=== PATIENT | female | born 1990 | race Caucasian/White ===

== ENCOUNTER 2016-07-15 12:12 | Emergency (ER) | payer OTHER ==
[2016-07-15] MEDS ORDERED: ACETAMINOPHEN TAB 500 MG TAB PO STA (12:25)
[2016-07-15] MEDS ORDERED: PHENAZOPYRIDINE 100 MG TAB PO STA (12:25)
[2016-07-15] MEDS ORDERED: SODIUM CHLORIDE 0.9% 1,000 ML IV STA (12:25)
--- NOTE | 2016-07-15 12:27 | ED ---
Female Urogenital HPI - General Chief complaint: Urogenital Stated complaint: BODY ACHES, UTI, FEVER Time Seen by Provider: 07/15/16 12:19 Source: patient, RN notes reviewed Mode of arrival: ambulatory Limitations: no limitations - History of Present Illness Initial comments: 25-year-old female presents to the emergency department with a chief complaint of dysuria. Patient states she's had dysuria for the past 2-3 days. Today she woke up and she had full body aches and a fever and she just feels terrible. Patient states that she was concerned. Patient states dysuria seemed to improve yesterday she is not other related or not. Patient denies any nausea vomiting any chest pain or shortness of breath. She denies any significant health history.Patient denies any recent shortness of breath, chest pain, back pain, abdominal pain, nausea vomiting, numbness or tingling,hematuria, constipation or diarrhea, headaches or visual changes, or any other current symptoms. - Related Data Home Medications Medication Instructions Recorded Confirmed Ibuprofen [Motrin] 200 - 400 mg PO Q6HR PRN 07/15/16 07/15/16 Previous Rx's Medication Instructions Recorded Ciprofloxacin HCl [Cipro] 500 mg PO Q12HR #14 tablet 07/15/16 Ondansetron Odt [Zofran ODT] 4 mg PO Q8HR PRN #20 tab 07/15/16 Phenazopyridine [Pyridium] 100 mg PO TID #6 tablet 07/15/16 Allergies Allergy/AdvReac Type Severity Reaction Status Date / Time No Known Allergies Allergy Verified 07/15/16 12:29 Review of Systems ROS Statement: Those systems with pertinent positive or pertinent negative responses have been documented in the HPI. ROS Other: All systems not noted in ROS Statement are negative. Past Medical History Past Medical History: No Reported History Additional Past Medical History / Comment(s): gallstones History of Any Multi-Drug Resistant Organisms: None Reported Past Surgical History: Cardiac Ablation Additional Past Surgical History / Comment(s): left foot, LICENSING OFFICER exploratory surgery Past Anesthesia/Blood Transfusion Reactions: No Reported Reaction Past Psychological History: Anxiety Smoking Status: Current every day smoker Past Alcohol Use History: Occasional Past Drug Use History: None Reported - Past Family History Mother Family Medical History: Cancer Additional Family Medical History / Comment(s): ovarian General Exam - General Exam Comments Initial Comments: General: The patient is awake and alert, in no distress, and does not appear acutely ill. Eye: Pupils are equal, round and reactive to light, extra-ocular movements are intact; there is normal conjunctiva bilaterally. No signs of icterus. Ears, nose, mouth and throat: There are moist mucous membranes and no oral lesions. Neck: The neck is supple, there is no tenderness. Cardiovascular: There is a regular rate and rhythm. No murmur, rub or gallop is appreciated. Respiratory: Lungs are clear to auscultation, respirations are non-labored, breath sounds are equal. No wheezes, stridor, rales, or rhonchi. Gastrointestinal: Soft, non-distended, non-tender abdomen without masses or organomegaly noted. There is no rebound or guarding present. No CVA tenderness. Bowel sounds are unremarkable. Back: There is no tenderness to palpation in the midline. There is no obvious deformity. No rashes noted. Musculoskeletal: Normal ROM, no tenderness, There is no pedal edema. There is no calf tenderness or swelling. Sensation intact. Pulses equal bilaterally 2+. Neurological: CN II-XII intact, There are no obvious motor or sensory deficits. Coordination appears grossly intact. Speech is normal. Skin: Skin is warm and dry and no rashes or lesions are noted. Psychiatric: Cooperative, appropriate mood & affect, normal judgment. Limitations: no limitations Course Vital Signs 07/15/16 12:14 Temperature 102.2 F H Pulse Rate 65 Respiratory 16 Rate Blood Pressure 138/96 O2 Sat by Pulse 97 Oximetry Medical Decision Making - Medical Decision Making 25-year-old female presents to the emergency Department chief complaint fever and dysuria. At this time the patient does appear to have a pyelonephritis. This time patient did receive 2 g of Rocephin. Patient's fever has broke she has no white blood cell count. At this time we did discuss that we could admit the patient for IV antibiotics. Patient states she does not want that she like to go home. This and would trial of outpatient antibiotics. We discussed the importance of returning we did discuss return parameters and follow-up. We discussed the patient's questions. She stated that she understood well the patient's wishes and discharge her home with the appropriate medications. We discussed return parameters. All her questions have been answered. She will be discharged. - Lab Data Result diagrams: 07/15/16 12:10 07/15/16 12:10 Lab Results 07/15/16 07/15/16 07/15/16 Range/Units 12:10 12:10 12:10 WBC 10.0 (3.8-10.6) k/uL RBC 4.35 (3.80-5.40) m/uL Hgb 13.0 (11.4-16.0) gm/dL Hct 40.3 (34.0-46.0) % MCV 92.7 (80.0-100.0) fL MCH 29.9 (25.0-35.0) pg MCHC 32.2 (31.0-37.0) g/dL RDW 12.7 (11.5-15.5) % Plt Count 208 (150-450) k/uL Neutrophils % 80 % Lymphocytes % 13 % Monocytes % 5 % Eosinophils % 1 % Basophils % 0 % Neutrophils # 8.0 H (1.3-7.7) k/uL Lymphocytes # 1.3 (1.0-4.8) k/uL Monocytes # 0.5 (0-1.0) k/uL Eosinophils # 0.1 (0-0.7) k/uL Basophils # 0.0 (0-0.2) k/uL Sodium 141 (137-145) mmol/L Potassium 3.9 (3.5-5.1) mmol/L Chloride 105 (98-107) mmol/L Carbon Dioxide 23 (22-30) mmol/L Anion Gap 13 mmol/L BUN 8 (7-17) mg/dL Creatinine 0.88 (0.52-1.04) mg/dL Est GFR (MDRD) Af Amer >60 (>60 ml/min/1.73 sqM) Est GFR (MDRD) Non-Af >60 (>60 ml/min/1.73 sqM) Glucose 83 (74-99) mg/dL Plasma Lactic Acid Christopher (0.7-2.0) mmol/L Calcium 9.3 (8.4-10.2) mg/dL Total Bilirubin 1.1 (0.2-1.3) mg/dL AST 19 (14-36) U/L ALT 32 (9-52) U/L Alkaline Phosphatase 73 (38-126) U/L Total Protein 7.3 (6.3-8.2) g/dL Albumin 4.1 (3.5-5.0) g/dL Urine Color Urine Appearance (Clear) Urine pH (5.0-8.0) Ur Specific [place] (1.001-1.035) Urine Protein (Negative) Urine Glucose (UA) (Negative) Urine Ketones (Negative) Urine Blood (Negative) Urine Nitrate (Negative) Urine Bilirubin (Negative) Urine Urobilinogen (<2.0) mg/dL Ur Leukocyte Esterase (Negative) Urine RBC (0-5) /hpf Urine WBC (0-5) /hpf Ur Squamous Epith Cells (0-4) /hpf Urine Bacteria (None) /hpf Urine Mucus (None) /hpf Influenza Type A RNA Not Detected (Not Detectd) Influenza Type B (PCR) Not Detected (Not Detectd) 07/15/16 07/15/16 Range/Units 12:10 12:10 WBC (3.8-10.6) k/uL RBC (3.80-5.40) m/uL Hgb (11.4-16.0) gm/dL Hct (34.0-46.0) % MCV (80.0-100.0) fL MCH (25.0-35.0) pg MCHC (31.0-37.0) g/dL RDW (11.5-15.5) % Plt Count (150-450) k/uL Neutrophils % % Lymphocytes % % Monocytes % % Eosinophils % % Basophils % % Neutrophils # (1.3-7.7) k/uL Lymphocytes # (1.0-4.8) k/uL Monocytes # (0-1.0) k/uL Eosinophils # (0-0.7) k/uL Basophils # (0-0.2) k/uL Sodium (137-145) mmol/L Potassium (3.5-5.1) mmol/L Chloride (98-107) mmol/L Carbon Dioxide (22-30) mmol/L Anion Gap mmol/L BUN (7-17) mg/dL Creatinine (0.52-1.04) mg/dL Est GFR (MDRD) Af Amer (>60 ml/min/1.73 sqM) Est GFR (MDRD) Non-Af (>60 ml/min/1.73 sqM) Glucose (74-99) mg/dL Plasma Lactic Acid Christopher 1.5 (0.7-2.0) mmol/L Calcium (8.4-10.2) mg/dL Total Bilirubin (0.2-1.3) mg/dL AST (14-36) U/L ALT (9-52) U/L Alkaline Phosphatase (38-126) U/L Total Protein (6.3-8.2) g/dL Albumin (3.5-5.0) g/dL Urine Color Yellow Urine Appearance Turbid H (Clear) Urine pH 6.5 (5.0-8.0) Ur Specific [place] 1.012 (1.001-1.035) Urine Protein 1+ H (Negative) Urine Glucose (UA) Negative (Negative) Urine Ketones Negative (Negative) Urine Blood Small H (Negative) Urine Nitrate Positive H (Negative) Urine Bilirubin Negative (Negative) Urine Urobilinogen 2.0 (<2.0) mg/dL Ur Leukocyte Esterase Large H (Negative) Urine RBC 34 H (0-5) /hpf Urine WBC >182 H (0-5) /hpf Ur Squamous Epith Cells 20 H (0-4) /hpf Urine Bacteria Rare H (None) /hpf Urine Mucus Rare H (None) /hpf Influenza Type A RNA (Not Detectd) Influenza Type B (PCR) (Not Detectd) Disposition Clinical Impression: Acute pyelonephritis Disposition: HOME SELF-CARE Condition: Stable Instructions: Kidney Infection (ED) Additional Instructions: Please use medication as discussed. Please follow up with family doctor if symptoms have not improved over the next two days. Please return to the emergency room if your symptoms increase or worsen or for any other concerns. Prescriptions: Ciprofloxacin HCl [Cipro] 500 mg PO Q12HR #14 tablet Ondansetron Odt [Zofran ODT] 4 mg PO Q8HR PRN #20 tab PRN Reason: Nausea Phenazopyridine [Pyridium] 100 mg PO TID #6 tablet Referrals: None,Stated [Primary Care Provider] - 1-2 days Patricia Marion MD [STAFF PHYSICIAN] - 1-2 days Time of Disposition: 13:41
[2016-07-15 12:55] LABS: Basophils % (A) 0 %; CH 30.7; CHCM 33.3; Eosinophils # (A) 0.1 k/uL (0-0.7); Eosinophils % (A) 1 %; HCT 40.3 % (34.0-46.0); HDW 2.15; Luc % (Auto) 1; Lymphocytes # (A) 1.3 k/uL (1.0-4.8); Lymphocytes % (A) 13 %; MCH 29.9 pg (25.0-35.0); MCHC 32.2 g/dL (31.0-37.0); MCV 92.7 fL (80.0-100.0); Mean Platelet Volume 7.9; Monocytes # (A) 0.5 k/uL (0-1.0); Monocytes % (A) 5 %; Neutrophils % (A) 80 %; RBC 4.35 m/uL (3.80-5.40); RDW 12.7 % (11.5-15.5); WBC (Perox) 10.63
[2016-07-15 12:58] LABS: Appearance,Urine Turbid (Clear); Bacteria,Urine Rare /hpf; Bilirubin,Urine Negative (Negative); Glucose,Urine (UA) Negative (Negative); Ketones,Urine Negative (Negative); Leukocyte Esterase,Urine Large (Negative); Mucus,Urine Rare /hpf; Nitrite,Urine Positive (Negative); PH, Urine 6.5 (5.0-8.0); Particle Count 24682; Protein,Urine 1+ (Negative); RBC,Urine 34 /hpf (0-5); Specific Gravity,Urine 1.012 (1.001-1.035); Squamous Epithelial Cell,Urine 20 /hpf (0-4); UA Billing (MACRO vs. MICRO) MICRO; WBC,Urine >182 /hpf (0-5)
[2016-07-15 13:03] LABS: ALT 32 U/L (9-52); AST 19 U/L (14-36); Alkaline Phosphatase 73 U/L (38-126); Anion Gap 13 mmol/L; Blood Urea Nitrogen 8 mg/dL (7-17); Calcium 9.3 mg/dL (8.4-10.2); Carbon Dioxide 23 mmol/L (22-30); Chloride 105 mmol/L (98-107); Glucose 83 mg/dL (74-99); Non-African American GFR(MDRD) >60 (>60 ml/min/1.73 sqM); Potassium 3.9 mmol/L (3.5-5.1); Sodium 141 mmol/L (137-145); Total Bilirubin 1.1 mg/dL (0.2-1.3); Total Protein 7.3 g/dL (6.3-8.2)
[2016-07-15] MEDS ORDERED: METOCLOPRAMIDE 5 MG/ML 2 ML VIAL IVP STA (13:23)
[2016-07-15] MEDS ORDERED: CIPROFLOXACIN HCL 500 MG TAB PO STA (13:41)
[2016-07-15 14:31] VITALS: BP 93/50; PULSE 98; RESP 16; TEMP 99
== END 2016-07-15 14:29 | disposition home or self-care (01) ==
LOC: EC 12:12
DX: N10 Acute pyelonephritis (principal); F17.200 Nicotine dependence, unspecified, uncomplicated
CPT/HCPCS: 99283; 96365; 96368; 96375; 96361; 36415; 80053; 83605; 85025; 81001; 87040; 87086; 87502; J2765; J0696; 87077; 87186

== ENCOUNTER 2016-11-16 07:39 | Emergency (ER) | payer OTHER ==
[2016-11-16] MEDS ORDERED: SODIUM CHLORIDE 0.9% 1,000 ML IV STA (08:40)
[2016-11-16] MEDS ORDERED: ONDANSETRON 4 MG/2 ML VIAL IVP STA (08:40)
[2016-11-16] MEDS ORDERED: ACETAMINOPHEN IV (For NPO) 1,000 MG in SALINE 100 100ML.BAG IVPB STA (08:41)
--- NOTE | 2016-11-16 08:49 | ED ---
General Adult HPI - General Chief complaint: Abdominal Pain Stated complaint: Abd Pain Time Seen by Provider: 11/16/16 08:37 Source: patient, RN notes reviewed Mode of arrival: ambulatory Limitations: no limitations - History of Present Illness Initial comments: Patient 26-year-old female who presents emergency room today with chief complaint of upper abdominal pain that started approximately 3 hours ago. She does admit to pain greatest in the right upper quadrant radiating across and around into the back. She states that it is a sharp pain. Slightly better since being here in the emergency room. Does admit to a history of gallstones. States she follow-up with his surgeon approximately year ago but was having problems with her insurance at the time. Patient does admit to symptoms of nausea. She denies any other complaints or symptoms at this time. Patient denies any recent fever, chills, shortness of breath, chest pain, numbness or tingling, dysuria or hematuria, constipation or diarrhea, headaches or visual changes, or any other complaints. - Related Data Home Medications Medication Instructions Recorded Confirmed Ibuprofen [Motrin] 200 - 400 mg PO Q6HR PRN 07/15/16 07/15/16 Previous Rx's Medication Instructions Recorded Ciprofloxacin HCl [Cipro] 500 mg PO Q12HR #14 tablet 07/15/16 Ondansetron Odt [Zofran ODT] 4 mg PO Q8HR PRN #20 tab 07/15/16 Phenazopyridine [Pyridium] 100 mg PO TID #6 tablet 07/15/16 Ondansetron Odt [Zofran ODT] 4 mg PO Q8HR PRN #20 tab 11/16/16 Allergies Allergy/AdvReac Type Severity Reaction Status Date / Time No Known Allergies Allergy Verified 11/16/16 07:40 Review of Systems ROS Statement: Those systems with pertinent positive or pertinent negative responses have been documented in the HPI. ROS Other: All systems not noted in ROS Statement are negative. 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 Eye: Pupils are equal, round and reactive to light, extra-ocular movements are intact. No nystagmus. There is normal conjunctiva bilaterally. No signs of icterus. Ears, nose, mouth and throat: There are moist mucous membranes and no oral lesions. Neck: The neck is supple, there is no tenderness or JVD. Cardiovascular: There is a regular rate and rhythm. No murmur, rub or gallop is appreciated. Respiratory: Lungs are clear to auscultation, respirations are non-labored, breath sounds are equal. No wheezes, stridor, rales, or rhonchi. Gastrointestinal: Normal appearance abdomen. Normal bowel sounds. Soft on palpation. Patient does have mild tenderness in the epigastric with increased tenderness in the right upper quadrant. No rebound tenderness. No guarding. No CVA tenderness. Musculoskeletal: Normal ROM, no tenderness. Strength 5/5. Sensation intact. Pulses equal bilaterally 2+. Neurological: A&O x 3. CN II-XII intact, There are no obvious motor or sensory deficits. Coordination appears grossly intact. Speech is normal. Skin: Skin is warm and dry and no rashes or lesions are noted. Psychiatric: Cooperative, appropriate mood & affect, normal judgment. Limitations: no limitations Course Vital Signs 11/16/16 11/16/16 07:40 09:22 Temperature 97.4 F L Pulse Rate 98 77 Respiratory 17 18 Rate Blood Pressure 118/78 113/57 O2 Sat by Pulse 99 98 Oximetry Medical Decision Making - Medical Decision Making Patient reexamined at this time shows no signs of distress resting comfortably in stretcher. Abdomen soft nontender. Patient's labs been reviewed unremarkable. No elevated white count. No fever. Negative alk phos and bilirubin. Patient's ultrasound reviewed and does show evidence for lithiasis no evidence of cholecystitis. Patient has seen Dr. Culver in the past but due to insurance issues did not have the surgery performed. At this time patient is advised to follow-up with surgeon. Advised return to emergency room if any symptoms increase or worsen or for any other concerns. She states her stated and is in agreement. - Lab Data Result diagrams: 11/16/16 08:12 11/16/16 08:12 Lab Results 11/16/16 11/16/16 11/16/16 Range/Units 08:12 08:12 08:12 WBC 7.6 (3.8-10.6) k/uL RBC 4.92 (3.80-5.40) m/uL Hgb 15.0 (11.4-16.0) gm/dL Hct 46.3 H (34.0-46.0) % MCV 94.2 (80.0-100.0) fL MCH 30.4 (25.0-35.0) pg MCHC 32.3 (31.0-37.0) g/dL RDW 13.3 (11.5-15.5) % Plt Count 265 (150-450) k/uL Neutrophils % 59 % Lymphocytes % 32 % Monocytes % 5 % Eosinophils % 1 % Basophils % 0 % Neutrophils # 4.5 (1.3-7.7) k/uL Lymphocytes # 2.5 (1.0-4.8) k/uL Monocytes # 0.4 (0-1.0) k/uL Eosinophils # 0.1 (0-0.7) k/uL Basophils # 0.0 (0-0.2) k/uL Sodium 141 (137-145) mmol/L Potassium 4.2 (3.5-5.1) mmol/L Chloride 107 (98-107) mmol/L Carbon Dioxide 23 (22-30) mmol/L Anion Gap 11 mmol/L BUN 10 (7-17) mg/dL Creatinine 0.68 (0.52-1.04) mg/dL Est GFR (MDRD) Af Amer >60 (>60 ml/min/1.73 sqM) Est GFR (MDRD) Non-Af >60 (>60 ml/min/1.73 sqM) Glucose 104 H (74-99) mg/dL Calcium 9.5 (8.4-10.2) mg/dL Total Bilirubin 0.5 (0.2-1.3) mg/dL AST 18 (14-36) U/L ALT 22 (9-52) U/L Alkaline Phosphatase 67 (38-126) U/L Total Protein 7.6 (6.3-8.2) g/dL Albumin 4.5 (3.5-5.0) g/dL Amylase 44 (30-110) U/L Lipase 92 (23-300) U/L Urine Color Urine Appearance (Clear) Urine pH (5.0-8.0) Ur Specific [place] (1.001-1.035) Urine Protein (Negative) Urine Glucose (UA) (Negative) Urine Ketones (Negative) Urine Blood (Negative) Urine Nitrite (Negative) Urine Bilirubin (Negative) Urine Urobilinogen (<2.0) mg/dL Ur Leukocyte Esterase (Negative) Urine HCG, Qual Not Detected (Not Detectd) 11/16/16 Range/Units 08:12 WBC (3.8-10.6) k/uL RBC (3.80-5.40) m/uL Hgb (11.4-16.0) gm/dL Hct (34.0-46.0) % MCV (80.0-100.0) fL MCH (25.0-35.0) pg MCHC (31.0-37.0) g/dL RDW (11.5-15.5) % Plt Count (150-450) k/uL Neutrophils % % Lymphocytes % % Monocytes % % Eosinophils % % Basophils % % Neutrophils # (1.3-7.7) k/uL Lymphocytes # (1.0-4.8) k/uL Monocytes # (0-1.0) k/uL Eosinophils # (0-0.7) k/uL Basophils # (0-0.2) k/uL Sodium (137-145) mmol/L Potassium (3.5-5.1) mmol/L Chloride (98-107) mmol/L Carbon Dioxide (22-30) mmol/L Anion Gap mmol/L BUN (7-17) mg/dL Creatinine (0.52-1.04) mg/dL Est GFR (MDRD) Af Amer (>60 ml/min/1.73 sqM) Est GFR (MDRD) Non-Af (>60 ml/min/1.73 sqM) Glucose (74-99) mg/dL Calcium (8.4-10.2) mg/dL Total Bilirubin (0.2-1.3) mg/dL AST (14-36) U/L ALT (9-52) U/L Alkaline Phosphatase (38-126) U/L Total Protein (6.3-8.2) g/dL Albumin (3.5-5.0) g/dL Amylase (30-110) U/L Lipase (23-300) U/L Urine Color Light Yellow Urine Appearance Clear (Clear) Urine pH 6.5 (5.0-8.0) Ur Specific [place] 1.006 (1.001-1.035) Urine Protein Negative (Negative) Urine Glucose (UA) Negative (Negative) Urine Ketones Negative (Negative) Urine Blood Negative (Negative) Urine Nitrite Negative (Negative) Urine Bilirubin Negative (Negative) Urine Urobilinogen <2.0 (<2.0) mg/dL Ur Leukocyte Esterase Negative (Negative) Urine HCG, Qual (Not Detectd) Disposition Clinical Impression: Cholelithiasis Disposition: HOME SELF-CARE Condition: Good Instructions: Gallstones (ED) Additional Instructions: Please follow-up with surgeon as discussed. Please stay away from fatty, greasy food as discussed. Please usemedication as needed and return to emergency room if any symptoms increase or worsen or for any other concerns. Prescriptions: Ondansetron Odt [Zofran ODT] 4 mg PO Q8HR PRN #20 tab PRN Reason: Nausea Referrals: None,Stated [Primary Care Provider] - 1-2 days Jamie Thakur MD [STAFF PHYSICIAN] - 1-2 days Time of Disposition: 09:38
[2016-11-16 08:54] LABS: Appearance,Urine Clear (Clear); Bilirubin,Urine Negative (Negative); Glucose,Urine (UA) Negative (Negative); Ketones,Urine Negative (Negative); Leukocyte Esterase,Urine Negative (Negative); Nitrite,Urine Negative (Negative); PH, Urine 6.5 (5.0-8.0); Protein,Urine Negative (Negative); Specific Gravity,Urine 1.006 (1.001-1.035); UA Billing (MACRO vs. MICRO) CHEM; Urobilinogen,Urine <2.0 mg/dL (<2.0)
[2016-11-16 08:55] LABS: Basophils % (A) 0 %; CH 30.8; CHCM 32.9; Eosinophils # (A) 0.1 k/uL (0-0.7); Eosinophils % (A) 1 %; HCT 46.3 % (34.0-46.0); Luc # (Auto) 0.17; Luc % (Auto) 2; Lymphocytes # (A) 2.5 k/uL (1.0-4.8); Lymphocytes % (A) 32 %; MCH 30.4 pg (25.0-35.0); MCHC 32.3 g/dL (31.0-37.0); MCV 94.2 fL (80.0-100.0); Mean Platelet Volume 7.3; Monocytes # (A) 0.4 k/uL (0-1.0); Monocytes % (A) 5 %; Neutrophils # (A) 4.5 k/uL (1.3-7.7); Neutrophils % (A) 59 %; RBC 4.92 m/uL (3.80-5.40); RDW 13.3 % (11.5-15.5); WBC 7.6 k/uL (3.8-10.6); WBC (Perox) 7.37
[2016-11-16 09:05] LABS: ALT 22 U/L (9-52); AST 18 U/L (14-36); Alkaline Phosphatase 67 U/L (38-126); Amylase 44 U/L (30-110); Anion Gap 11 mmol/L; Blood Urea Nitrogen 10 mg/dL (7-17); Calcium 9.5 mg/dL (8.4-10.2); Carbon Dioxide 23 mmol/L (22-30); Chloride 107 mmol/L (98-107); Glucose 104 mg/dL (74-99); Non-African American GFR(MDRD) >60 (>60 ml/min/1.73 sqM); Potassium 4.2 mmol/L (3.5-5.1); Sodium 141 mmol/L (137-145); Total Bilirubin 0.5 mg/dL (0.2-1.3); Total Protein 7.6 g/dL (6.3-8.2)
[2016-11-16 09:23] VITALS: BP 113/57; PULSE 77; RESP 18
--- NOTE | 2016-11-16 09:29 | US ---
EXAMINATION TYPE: US abdomen limited DATE OF EXAM: 11/16/2016 COMPARISON: Gallbladder ultrasound March 24, 2016 CLINICAL HISTORY: Pain. RUQ pain and nausea for 1 year EXAM MEASUREMENTS: Liver Length: 15.7 cm Gallbladder Wall: 0.2 cm CBD: 0.4 cm Right Kidney: 9.6 x 4.3 x 3.9 cm Pancreas: wnl Liver: wnl Gallbladder: 1.4cm neck stone seen that had limited mobility when rolled patient LLD, another smalle r stone seen with internal debris throughout Evidence for sonographic Culp's sign: yes CBD: wnl Right Kidney: wnl IMPRESSION: Gallstones without convincing secondary ultrasound evidence for acute cholecystitis. Bolanos glenys in patient with right upper quadrant pain and positive sonographic Culp's sign it cannot be ent irely excluded. Consider HIDA scan correlation.
[2016-11-16 09:48] VITALS: TEMP 98.6
== END 2016-11-16 09:47 | disposition home or self-care (01) ==
LOC: EC 07:39
DX: K80.20 Calculus of gallbladder without cholecystitis without obstruction (principal); R11.0 Nausea; F17.200 Nicotine dependence, unspecified, uncomplicated
CPT/HCPCS: 36415; 80053; 82150; 83690; 85025; 81003; 81025; 76705; 99284; 96374; 96375; J2405; J0131

== ENCOUNTER 2016-11-24 06:12 | Day surgery (SDC) | payer OTHER ==
[2016-11-23 08:55] VITALS: BMI 26.7
[~2016-11-24 06:12] MED LIST: DEXAMETHASONE SOD PHOSPHATE 10 MG/ML 1 ML VIAL IV ONE; HEPARIN SODIUM,PORCINE 5,000 UNIT/ML 1 ML VIAL SQ ONE; LACTATED RINGERS 1,000 ML IV SCH; LIDOCAINE 1% 20 ML VIAL (10MG/ML) FOR IV START INTRADERMA PRN; ONDANSETRON 4 MG/2 ML VIAL IVP ONE; SCOPOLAMINE 1.5MG/72HR PATCH TRANSDERM ONE; ceFAZolin 2 GM in SODIUM CHLORIDE 0.9% 100 ML IVPB ONE
[2016-11-24 06:38] VITALS: RESP 16
[2016-11-24] MEDS ORDERED: MIDAZOLAM 2 MG/2 ML VIAL IVP ONE (06:58)
[2016-11-24] MEDS ORDERED: BUPIVACAIN-EPI 0.25%-1:200,000 30 ML VIAL IJ ONE ×2 (07:33→07:58)
[2016-11-24] MEDS ORDERED: LIDOCAINE 1% INJ 10MG/ML (20 ML MDV) ONE (07:43)
[2016-11-24] MEDS ORDERED: ROCURONIUM BROMIDE 10 MG/ML 10 ML VIAL IV ONE (07:43)
[2016-11-24] MEDS ORDERED: GLYCOPYRROLATE 0.2 MG/ML 2 ML VIAL ONE (07:43)
[2016-11-24] MEDS ORDERED: SUCCINYLCHOLINE CHLORIDE 100 MG/5 ML SYR IV ONE (07:43)
[2016-11-24] MEDS ORDERED: NEOSTIGMINE 1 MG/ML 10 ML VIAL ONE (07:43)
[2016-11-24] MEDS ORDERED: fentaNYL (PF) 50 MCG/ML 2 ML AMP ONE (07:43)
[2016-11-24] MEDS ORDERED: KETOROLAC 30 MG/ML 1 ML VIAL ONE (07:43)
[2016-11-24] MEDS ORDERED: PROPOFOL 10 MG/ML 20 ML VIAL IV ONE (07:43)
--- NOTE | 2016-11-24 07:49 | P.GSHP ---
History of Present Illness H&P Date: 11/24/16 Chief Complaint: Right upper quadrant pain This a 26-year-old female who presents today for laparoscopic cholecystectomy. Patient's complaints of right upper quadrant pain. The patient has had an ultrasound shows evidence of cholelithiasis. - Constitutional Constitutional: Reports as per HPI Past Medical History Past Medical History: No Reported History Additional Past Medical History / Comment(s): Hx gallstones, cardiac ablation 2010, palpitations. History of Any Multi-Drug Resistant Organisms: None Reported Past Surgical History: Cardiac Ablation Additional Past Surgical History / Comment(s): Left foot surgery, 2 laproscopic surgeries on ovaries, D&C, IUD placement. Past Anesthesia/Blood Transfusion Reactions: No Reported Reaction Past Psychological History: Anxiety Smoking Status: Current every day smoker Past Alcohol Use History: Occasional Additional Past Alcohol Use History / Comment(s): Has been smoking <1/2 PPD for 8 yrs. Past Drug Use History: None Reported - Past Family History Mother Family Medical History: Cancer Additional Family Medical History / Comment(s): ovarian Medications and Allergies Home Medications Medication Instructions Recorded Confirmed Type Mirena (Iud) 11/23/16 History Allergies Allergy/AdvReac Type Severity Reaction Status Date / Time No Known Allergies Allergy Verified 11/24/16 06:34 Surgical - Exam Vital Signs Temp Pulse Resp BP Pulse Ox 98.6 F 85 16 93/65 97 11/24/16 06:36 11/24/16 06:36 11/24/16 06:36 11/24/16 06:36 11/24/16 06:36 - General well developed, no distress - Eyes PERRL - ENT normal pinna - Neck no masses - Respiratory normal expansion - Cardiovascular Rhythm: regular - Abdomen Right upper quadrant pain Abdomen: soft Assessment and Plan Plan: Right upper quadrant pain Cholelithiasis We'll perform laparoscopic cholecystectomy.
--- NOTE | 2016-11-24 08:21 | P.OP ---
Date of Procedure: 11/24/16 Preoperative Diagnosis: Cholecystitis Postoperative Diagnosis: Cholecystitis Cholelithiasis Procedure(s) Performed: Laparoscopic cholecystectomy Implants: Anesthesia: RYLAN Surgeon: Jamie Thakur Estimated Blood Loss (ml): 5 Pathology: other (Gallbladder) Condition: stable Indications for Procedure: Operative Findings: Description of Procedure: The patient was placed on the operating table. The patient received a general endotracheal tube anesthesia. The patients abdomen was prepped and draped in the usual sterile fashion. Through an infraumbilical stab incision, the fascia of the anterior abdominal wall was grasped with a pair of Kochers and then the Veress needle was placed in the peritoneal cavity. Position of the Veress needle was confirmed with positive drop test. The abdomen was then insufflated. After adequate insufflation, the 10 mm trocar was placed in the peritoneal cavity. Following this the laparoscope was placed in the peritoneal cavity. The patient was placed in the head-up, right side up position and then a 5 mm trocar was placed in the right lateral and right subcostal position under direct visualization. A 8 mm trocar was placed in the epigastric position. The gallbladder was grasped in the fundus and infundibulum. Traction on the gallbladder was placed in the lateral and the cephalad positions. The triangle of Calot was visualized.. The cystic duct was bluntly dissected until the union of the cystic duct and common bile duct was seen. The cystic duct was then divided and sealed with the Harmonic scissors. A PDS Endoloop was then placed throughout the cystic duct stump. The cystic artery divided and sealed with the Harmonic scissors. The gallbladder was then removed from the liver bed using Harmonic scissors. The gallbladder was then extracted through the epigastric port site. Operative field was checked for any bleeding spots and Harmonic scissors was used to coagulate the liver bed. The abdomen was irrigated. The trocars were removed. The skin was closed using interrupted 3-0 Vicryl suture. Dermabond dressing were applied. The patient tolerated the procedure well.
[2016-11-24] MEDS: HYDROmorphone 1 MG/ML 1 ML SYRINGE IVP PRN ×2 (08:33→08:48)
[2016-11-24 08:38] VITALS: TEMP 97
[2016-11-24 09:45] VITALS: BP 110/64; PULSE 66
== END 2016-11-24 10:00 | disposition home or self-care (01) ==
LOC: OR 06:12
PROVIDERS: ATTEND Surgery
DX: K80.10 Calculus of gallbladder with chronic cholecystitis without obstruction (principal); K21.9 Gastro-esophageal reflux disease without esophagitis; F17.200 Nicotine dependence, unspecified, uncomplicated; Z97.5 Presence of (intrauterine) contraceptive device
CPT/HCPCS: 47562; 81025; 88304; J2250; J1644; J1100; J2710; J0690; J2405; J2001; J3010; J1885; J1170; J0330; J2704

== ENCOUNTER → 2017-03-02 | Outpatient (CLI) | payer OTHER ==
--- NOTE | 2017-03-03 14:01 | US ---
EXAMINATION TYPE: US pelvis complete transvag DATE OF EXAM: 03/02/2017 COMPARISON: Yes CLINICAL HISTORY: Pevlic pain R10.2, Z97.5 Check IUD placement. IUD placed 01/2013. ML cramping, no m enses due to IUD TECHNIQUE: Transvaginal (TV) and Transabdominal (TA) Date of LMP: Unknown EXAM MEASUREMENTS: Uterus: 8.5 x 4.0 x 2.8 cm Endometrial Stripe: 0.2 cm Right Ovary: 3.0 x 1.8 x 1.5 cm Left Ovary: 2.8 x 1.4 x 1.9 cm 1. Uterus: Anteverted wnl 2. Endometrium: IUD seen within endometrial canal 3. Right Ovary: wnl 4. Left Ovary: wnl Spectral, color and waveform doppler imaging shows good arterial and venous flow within the ovaries ; there is no evidence for ovarian torsion. 5. Bilateral Adnexa: wnl 6. Posterior cul-de-sac: No free fluid Cervix- string from IUD seen IMPRESSION: No distinct abnormality appreciated
== END ==
LOC: RADUSMAIN 17:49
PROVIDERS: ATTEND Obstetrics & Gynecology
DX: R10.2 Pelvic and perineal pain (principal); Z97.5 Presence of (intrauterine) contraceptive device
CPT/HCPCS: 76830; 76856

== ENCOUNTER 2018-02-22 10:29 | Emergency (ER) | payer OTHER ==
[2018-02-22 10:39] VITALS: RESP 18
[2018-02-22 11:43] LABS: Basophils # (A) 0.1 k/uL (0-0.2); Basophils % (A) 1 %; Eosinophils # (A) 0.2 k/uL (0-0.7); Eosinophils % (A) 3 %; HCT 44.2 % (34.0-46.0); HGB 14.4 gm/dL (11.4-16.0); Lymphocytes # (A) 2.7 k/uL (1.0-4.8); Lymphocytes % (A) 29 %; MCH 29.8 pg (25.0-35.0); MCHC 32.5 g/dL (31.0-37.0); MCV 91.6 fL (80.0-100.0); Mean Platelet Volume 7.4; Monocytes # (A) 0.4 k/uL (0-1.0); Monocytes % (A) 5 %; Neutrophils # (A) 5.6 k/uL (1.3-7.7); Neutrophils % (A) 62 %; Platelet Count 281 k/uL (150-450); RBC 4.83 m/uL (3.80-5.40); WBC 9.1 k/uL (3.8-10.6)
[2018-02-22 11:50] LABS: Appearance,Urine Clear (Clear); Bilirubin,Urine Negative (Negative); Blood,Urine Moderate (Negative); Color,Urine Light Yellow; Glucose,Urine (UA) Negative (Negative); Ketones,Urine Negative (Negative); Leukocyte Esterase,Urine Negative (Negative); Mucus,Urine Rare /hpf; Nitrite,Urine Negative (Negative); PH, Urine 6.5 (5.0-8.0); Protein,Urine Negative (Negative); Specific Gravity,Urine 1.003 (1.001-1.035); Squamous Epithelial Cell,Urine 1 /hpf (0-4); Urobilinogen,Urine <2.0 mg/dL (<2.0); WBC,Urine 1 /hpf (0-5)
--- NOTE | 2018-02-22 12:10 | ED ---
General Adult HPI - General Chief complaint: Vaginal Bleeding Stated complaint: Poss miscarriage Time Seen by Provider: 02/22/18 10:43 Source: patient, RN notes reviewed, old records reviewed Mode of arrival: ambulatory - History of Present Illness Initial comments: This is a 27-year-old female the ER for evaluation of vaginal bleeding. Patient denies abdominal pain. Some lower back cramping. She does have positive history of . Is a , patient does have recent positive test, did recently have spotting and bleeding today. Patient concern for miscarriage - Related Data Home Medications Medication Instructions Recorded Confirmed No Known Home Medications 02/22/18 02/22/18 Allergies Allergy/AdvReac Type Severity Reaction Status Date / Time No Known Allergies Allergy Verified 02/22/18 10:57 Review of Systems ROS Statement: Those systems with pertinent positive or pertinent negative responses have been documented in the HPI. ROS Other: All systems not noted in ROS Statement are negative. Past Medical History Past Medical History: No Reported History Additional Past Medical History / Comment(s): Hx gallstones, cardiac ablation 2010, palpitations. History of Any Multi-Drug Resistant Organisms: None Reported Past Surgical History: Cardiac Ablation, Cholecystectomy Additional Past Surgical History / Comment(s): Left foot surgery, 2 laproscopic surgeries on ovaries, D&C, IUD placement. Past Anesthesia/Blood Transfusion Reactions: No Reported Reaction Past Psychological History: Anxiety Smoking Status: Current every day smoker Past Alcohol Use History: Occasional Past Drug Use History: None Reported - Past Family History Mother Family Medical History: Cancer Additional Family Medical History / Comment(s): ovarian General Exam General appearance: alert, in no apparent distress Head exam: Present: atraumatic, normocephalic, normal inspection Eye exam: Present: normal appearance, PERRL, EOMI. Absent: scleral icterus, conjunctival injection, periorbital swelling ENT exam: Present: normal exam, mucous membranes moist Neck exam: Present: normal inspection. Absent: tenderness, meningismus, lymphadenopathy Respiratory exam: Present: normal lung sounds bilaterally. Absent: respiratory distress, wheezes, rales, rhonchi, stridor Cardiovascular Exam: Present: regular rate, normal rhythm, normal heart sounds. Absent: systolic murmur, diastolic murmur, rubs, gallop, clicks GI/Abdominal exam: Present: soft, normal bowel sounds. Absent: distended, tenderness, guarding, rebound, rigid Extremities exam: Present: normal inspection, full ROM, normal capillary refill. Absent: tenderness, pedal edema, joint swelling, calf tenderness Back exam: Present: normal inspection Neurological exam: Present: alert, oriented X3, CN II-XII intact Psychiatric exam: Present: normal affect, normal mood Skin exam: Present: warm, dry, intact, normal color. Absent: rash Course Vital Signs 02/22/18 10:34 Temperature 98.5 F Pulse Rate 90 Respiratory 18 Rate Blood Pressure 118/75 O2 Sat by Pulse 100 Oximetry - Reevaluation(s) Reevaluation #1: 02/22/18 12:09 Spoke with patient at length regarding findings here in the emergency room, patient's questions are answered Medical Decision Making - Medical Decision Making 27 female the ER for evaluation of early versus miscarriage versus threatened miscarriage versus ectopic . Patient given information, questions are answered, will follow-up in 2 days for continued evaluation and beta - Lab Data Result diagrams: 02/22/18 11:25 Lab Results 02/22/18 02/22/18 Range/Units 11:25 11:25 WBC 9.1 (3.8-10.6) k/uL RBC 4.83 (3.80-5.40) m/uL Hgb 14.4 (11.4-16.0) gm/dL Hct 44.2 (34.0-46.0) % MCV 91.6 (80.0-100.0) fL MCH 29.8 (25.0-35.0) pg MCHC 32.5 (31.0-37.0) g/dL RDW 13.0 (11.5-15.5) % Plt Count 281 (150-450) k/uL Neutrophils % 62 % Lymphocytes % 29 % Monocytes % 5 % Eosinophils % 3 % Basophils % 1 % Neutrophils # 5.6 (1.3-7.7) k/uL Lymphocytes # 2.7 (1.0-4.8) k/uL Monocytes # 0.4 (0-1.0) k/uL Eosinophils # 0.2 (0-0.7) k/uL Basophils # 0.1 (0-0.2) k/uL Urine Color Light Yellow Urine Appearance Clear (Clear) Urine pH 6.5 (5.0-8.0) Ur Specific [place] 1.003 (1.001-1.035) Urine Protein Negative (Negative) Urine Glucose (UA) Negative (Negative) Urine Ketones Negative (Negative) Urine Blood Moderate H (Negative) Urine Nitrite Negative (Negative) Urine Bilirubin Negative (Negative) Urine Urobilinogen <2.0 (<2.0) mg/dL Ur Leukocyte Esterase Negative (Negative) Urine WBC 1 (0-5) /hpf Ur Squamous Epith Cells 1 (0-4) /hpf Urine Mucus Rare H (None) /hpf Disposition Clinical Impression: Vaginal bleeding, Threatened Disposition: HOME SELF-CARE Condition: Good Instructions: Threatened Miscarriage (ED) Is patient prescribed a controlled substance at d/c from ED?: No Referrals: None,Stated [Primary Care Provider] - 1-2 days
[2018-02-22 12:47] VITALS: BP 107/57; PULSE 84; TEMP 99
[2018-02-23 14:05] LABS: C. trachomatis,PCR Negative (Neg,Equiv); Chlamydia trachomatis Source Urine; N. gonorrhoeae,PCR Negative (Neg,Equiv); Neisseria Source Urine
== END 2018-02-22 12:45 | disposition home or self-care (01) ==
LOC: EC 10:29
DX: O20.0 Threatened abortion (principal); O99.330 Smoking (tobacco) complicating pregnancy, unspecified trimester; F17.200 Nicotine dependence, unspecified, uncomplicated; Z97.5 Presence of (intrauterine) contraceptive device; Z3A.00 Weeks of gestation of pregnancy not specified
CPT/HCPCS: 36415; 81001; 84702; 85025; 87086; 87491; 87591; 99284

== ENCOUNTER 2018-03-18 14:38 | Emergency (ER) | payer OTHER ==
[2018-03-18 14:44] VITALS: BP 116/71; RESP 18
--- NOTE | 2018-03-18 15:45 | ED ---
General Adult HPI - General Chief complaint: ENT Stated complaint: sore/swollen throat Time Seen by Provider: 03/18/18 14:48 Source: patient, RN notes reviewed Mode of arrival: ambulatory Limitations: no limitations - History of Present Illness Initial comments: 27-year-old female presents to the emergency department for chief complaint of sore throat times one day. Patient states her throat is swollen and she has pain when swallowing. She describes the pain as a sharp pain worsened when swallowing. She states she does not have a primary care doctor to see so came here. She denies any difficulty swallowing solids or liquids. She states her voice has been getting raspy. She denies any neck tenderness or stiffness. Denies any difficulty handling secretions. Patient denies any fevers or chills at home. She denies any cough, ear pain, congestion. Patient denies any difficulty breathing. Patient has not tried anything for pain. Patient has no other complaints at this time including shortness of breath, chest pain, abdominal pain, nausea or vomiting, headache, or visual changes. - Related Data Home Medications Medication Instructions Recorded Confirmed Ibuprofen [Motrin Ib] 600 mg PO Q6H PRN 03/18/18 03/18/18 Allergies Allergy/AdvReac Type Severity Reaction Status Date / Time No Known Allergies Allergy Verified 03/18/18 14:51 Review of Systems ROS Statement: Those systems with pertinent positive or pertinent negative responses have been documented in the HPI. ROS Other: All systems not noted in ROS Statement are negative. Past Medical History Past Medical History: No Reported History Additional Past Medical History / Comment(s): Hx gallstones, cardiac ablation 2010, palpitations. History of Any Multi-Drug Resistant Organisms: None Reported Past Surgical History: Cardiac Ablation, Cholecystectomy Additional Past Surgical History / Comment(s): Left foot surgery, 2 laproscopic surgeries on ovaries, D&C, IUD placement. Past Anesthesia/Blood Transfusion Reactions: No Reported Reaction Past Psychological History: Anxiety Smoking Status: Current every day smoker Past Alcohol Use History: Occasional Past Drug Use History: None Reported - Past Family History Mother Family Medical History: Cancer Additional Family Medical History / Comment(s): ovarian General Exam Limitations: no limitations General appearance: alert, in no apparent distress (Patient sitting on edge of bed in no distress. No difficulty handling secretions. No difficulty breathing.) Head exam: Present: atraumatic, normocephalic, normal inspection Eye exam: Present: normal appearance, PERRL, EOMI. Absent: scleral icterus, conjunctival injection, periorbital swelling ENT exam: Present: normal exam, normal oropharynx (Nonerythematous, uvula midline, no tonsillar exudates noted bilaterally.), mucous membranes moist, TM' s normal bilaterally, normal external ear exam Neck exam: Present: normal inspection, full ROM. Absent: tenderness, meningismus, lymphadenopathy (No tender lymphadenopathy noted) Respiratory exam: Present: normal lung sounds bilaterally. Absent: respiratory distress, wheezes, rales, rhonchi, stridor Cardiovascular Exam: Present: regular rate, normal rhythm, normal heart sounds. Absent: systolic murmur, diastolic murmur, rubs, gallop, clicks GI/Abdominal exam: Present: soft, normal bowel sounds. Absent: distended, tenderness, guarding, rebound, rigid Course Vital Signs 03/18/18 14:40 Temperature 98.8 F Pulse Rate 101 H Respiratory 18 Rate Blood Pressure 116/71 O2 Sat by Pulse 97 Oximetry Medical Decision Making - Medical Decision Making 27-year-old female presents to the emergency determine for chief class sore throat times one day. Patient states her throat feels swollen and hurts when she swallows. Patient states her voice is raspy. She denies any difficulty swallowing solids or liquids, breathing, or handling secretions. On exam patient is alert and well-appearing. She does not appear toxic. She is pleasant and communicative. Throat appears nonerythematous. No tonsillar exudates noted bilaterally. Rapid strep was sent which was negative. Culture pending at this time. Patient likely has a viral pharyngitis and was educated to take Motrin and Tylenol for pain. Discussed following up with a primary care provider and referral was given. Patient aware she needs to return to the emergency Department if she has any worsening symptoms. - Lab Data Lab Results 03/18/18 Range/Units 15:09 Group A Strep Rapid Negative (Negative) Disposition Clinical Impression: Pharyngitis Disposition: HOME SELF-CARE Condition: Good Instructions: Pharyngitis (ED) Additional Instructions: Please take Motrin and Tylenol for pain. Please follow-up with primary care provider in one to 2 days. Return to the emergency department if you have any worsening symptoms are not getting better. Return immediately if you have any difficulty swallowing solids or liquids or having difficulty breathing. Is patient prescribed a controlled substance at d/c from ED?: No Referrals: Miguel Luna MD [REFERRING] - 1-2 days Time of Disposition: 15:42
[2018-03-18 15:52] VITALS: PULSE 88; TEMP 98.6
== END 2018-03-18 15:53 | disposition home or self-care (01) ==
LOC: EC 14:38
DX: J02.9 Acute pharyngitis, unspecified (principal); F17.200 Nicotine dependence, unspecified, uncomplicated; Z97.5 Presence of (intrauterine) contraceptive device
CPT/HCPCS: 87081; 87430; 99284

== ENCOUNTER 2018-04-16 12:03 | Emergency (ER) | payer OTHER ==
--- NOTE | 2018-04-16 12:24 | ED ---
Lower Extremity Injury HPI - General Chief Complaint: Extremity Injury, Lower Stated Complaint: ankle injury Time Seen by Provider: 04/16/18 12:18 Source: patient, RN notes reviewed Mode of arrival: wheelchair Limitations: no limitations - History of Present Illness Initial Comments: This a 27-year-old female sent emergency Department chief complaint of right ankle injury. Patient states she was getting out of the car states that she twisted her ankle and rolled over. Patient states his pain the lateral portion. No prior fractures. Patient denies any focal pain no proximal leg pain. Patient has no paresthesias. Patient states that she has not applied any heat or ice no [id number] - Related Data Home Medications Medication Instructions Recorded Confirmed Ibuprofen [Motrin Ib] 600 mg PO Q6H PRN 03/18/18 03/18/18 Previous Rx's Medication Instructions Recorded Ibuprofen [Motrin] 600 mg PO Q8HR PRN #30 tab 04/16/18 Allergies Allergy/AdvReac Type Severity Reaction Status Date / Time No Known Allergies Allergy Verified 04/16/18 12:17 Review of Systems ROS Statement: Those systems with pertinent positive or pertinent negative responses have been documented in the HPI. ROS Other: All systems not noted in ROS Statement are negative. Past Medical History Past Medical History: No Reported History Additional Past Medical History / Comment(s): Hx gallstones, cardiac ablation 2010, palpitations. History of Any Multi-Drug Resistant Organisms: None Reported Past Surgical History: Cardiac Ablation, Cholecystectomy Additional Past Surgical History / Comment(s): Left foot surgery, 2 laproscopic surgeries on ovaries, D&C, IUD placement. Past Anesthesia/Blood Transfusion Reactions: No Reported Reaction Past Psychological History: Anxiety Smoking Status: Current every day smoker Past Alcohol Use History: Occasional Past Drug Use History: None Reported - Past Family History Mother Family Medical History: Cancer Additional Family Medical History / Comment(s): ovarian General Exam Limitations: no limitations General appearance: alert, in no apparent distress Head exam: Present: atraumatic, normocephalic, normal inspection Respiratory exam: Present: normal lung sounds bilaterally. Absent: respiratory distress, wheezes, rales, rhonchi, stridor Cardiovascular Exam: Present: regular rate, normal rhythm, normal heart sounds. Absent: systolic murmur, diastolic murmur, rubs, gallop, clicks Extremities exam: Present: other (Right ankle there is moderate swelling lateral portion, tenderness the lateral malleoli region, no ecchymosis neurovascular intact there is no foot tenderness no proximal tib-fib tenderness) Skin exam: Present: warm, dry, intact, normal color. Absent: rash Course Vital Signs 04/16/18 12:15 Temperature 98.2 F Pulse Rate 103 H Respiratory 20 Rate Blood Pressure 114/74 O2 Sat by Pulse 100 Oximetry Medical Decision Making - Medical Decision Making 27-year-old female presents emergency department for ankle injury. Patient had x-rays obtained emergency Department which showed no acute fracture. Patient has a right ankle sprain and was placed in a stirrup Aircast. Patient will follow-up with orthopedics if no improvement and return for any worsening symptoms. Disposition Clinical Impression: Right ankle sprain Disposition: HOME SELF-CARE Condition: Stable Instructions: Ankle Sprain (ED) Additional Instructions: Please return to the Emergency Department if symptoms worsen or any other concerns. Prescriptions: Ibuprofen [Motrin] 600 mg PO Q8HR PRN #30 tab PRN Reason: Pain Is patient prescribed a controlled substance at d/c from ED?: No Referrals: None,Stated [Primary Care Provider] - 1-2 days Jamir Avendano DO [Doctor of Osteopathic Medicine] - 1-2 days Time of Disposition: 13:15
--- NOTE | 2018-04-16 13:04 | XR ---
EXAMINATION TYPE: XR ankle complete RT DATE OF EXAM: 04/16/2018 COMPARISON: None HISTORY: Pain twisting injury TECHNIQUE: Three-view right ankle FINDINGS: No acute fractures are evident. Ankle mortise is intact. Soft tissues are unremarkable. Follow-up exam can be performed 7-10 days from acute trauma for continued pain. IMPRESSION: 1. Normal three-view right ankle.
[2018-04-16 13:40] VITALS: BP 99/77; PULSE 96; RESP 18; TEMP 97.6
== END 2018-04-16 13:35 | disposition home or self-care (01) ==
LOC: EC 12:03
DX: S93.401A Sprain of unspecified ligament of right ankle, initial encounter (principal); F17.200 Nicotine dependence, unspecified, uncomplicated; X50.1XXA Overexertion from prolonged static or awkward postures, initial encounter; Y93.89 Activity, other specified; Y92.89 Other specified places as the place of occurrence of the external cause
CPT/HCPCS: 99283

== ENCOUNTER → 2018-04-30 | Outpatient (CLI) | payer OTHER | END | disposition home or self-care (01) | LOC: LABWHC1 12:43 | PROVIDERS: ATTEND Obstetrics & Gynecology | DX: N93.8 Other specified abnormal uterine and vaginal bleeding (principal); R89.1 Abnormal level of hormones in specimens from other organs, systems and tissues | CPT/HCPCS: 36415; 83001; 83002 ==

== ENCOUNTER → 2018-07-16 | Outpatient (CLI) | payer OTHER | END | disposition home or self-care (01) | LOC: LABWHC1 07-15 14:03 | PROVIDERS: ATTEND Obstetrics & Gynecology | DX: O26.819 Pregnancy related exhaustion and fatigue, unspecified trimester (principal); Z3A.00 Weeks of gestation of pregnancy not specified | CPT/HCPCS: 36415; 84702 ==

== ENCOUNTER 2018-10-31 15:21 | Emergency (ER) | payer OTHER ==
[2018-10-31] MEDS ORDERED: SODIUM CHLORIDE 0.9% 1,000 ML IV STA (16:13)
--- NOTE | 2018-10-31 16:17 | ED ---
General Adult HPI - General Chief complaint: Dizziness Stated complaint: Dizziness Time Seen by Provider: 10/31/18 15:47 Source: patient, RN notes reviewed Mode of arrival: ambulatory Limitations: no limitations - History of Present Illness Initial comments: 28-year-old female with a past medical history of cardiac ablation, palpitation presents to the emergency department with a chief complaint of lightheadedness. Patient states that for the last 2 mornings when she wakes up she feels very lightheaded. She states this lasts for a few hours and then resolves for the remainder of the day. Denies dizziness or healing of the room spinning with thi s. Does admit to chance of but is unsure. Denies any chest pain or shortness of breath. Denies any headache. Denies any fevers or chills. Denies any back pain. Patient has no other complaints at this time including shortness of breath, chest pain, abdominal pain, nausea or vomiting, headache, or visual changes. - Related Data Home Medications Medication Instructions Recorded Confirmed Ibuprofen [Motrin Ib] 600 mg PO Q6H PRN 03/18/18 04/16/18 Previous Rx's Medication Instructions Recorded Ibuprofen [Motrin] 600 mg PO Q8HR PRN #30 tab 04/16/18 Allergies Allergy/AdvReac Type Severity Reaction Status Date / Time No Known Allergies Allergy Verified 10/31/18 15:34 Review of Systems ROS Statement: Those systems with pertinent positive or pertinent negative responses have been documented in the HPI. ROS Other: All systems not noted in ROS Statement are negative. Past Medical History Past Medical History: No Reported History Additional Past Medical History / Comment(s): Hx gallstones, cardiac ablation 2010, palpitations. History of Any Multi-Drug Resistant Organisms: None Reported Past Surgical History: Cardiac Ablation, Cholecystectomy Additional Past Surgical History / Comment(s): Left foot surgery, 2 laproscopic surgeries on ovaries, D&C, IUD placement. Past Anesthesia/Blood Transfusion Reactions: No Reported Reaction Past Psychological History: Anxiety Smoking Status: Current every day smoker Past Alcohol Use History: Occasional Past Drug Use History: None Reported - Past Family History Mother Family Medical History: Cancer Additional Family Medical History / Comment(s): ovarian General Exam Limitations: no limitations General appearance: alert, in no apparent distress Head exam: Present: atraumatic, normocephalic, normal inspection Eye exam: Present: normal appearance, PERRL, EOMI. Absent: scleral icterus, conjunctival injection, periorbital swelling ENT exam: Present: normal exam, normal oropharynx, mucous membranes moist, TM's normal bilaterally, normal external ear exam Neck exam: Present: normal inspection, full ROM. Absent: tenderness, meningismus, lymphadenopathy Respiratory exam: Present: normal lung sounds bilaterally. Absent: respiratory distress, wheezes, rales, rhonchi, stridor Cardiovascular Exam: Present: regular rate, normal rhythm, normal heart sounds. Absent: systolic murmur, diastolic murmur, rubs, gallop, clicks Neurological exam: Present: alert, oriented X3, CN II-XII intact, normal gait, other (GCS 15) Expanded Patient oriented to: Present: person, place, time Cranial nerves: EOM's Intact: Normal, Tongue Deviation: Normal, Nystagmus: Normal, Facial Sensation: Normal Cerebellar function: Finger to Nose: Normal Upper motor neuron: Pronator Drift: Normal Sensory exam: Upper Extremity Light Touch: Normal, Upper Extremity Pin Prick: Normal, Lower Extremity Light Touch: Normal, Lower Extremity Pin Prick: Normal Motor strength exam: RUE: 5, LUE: 5, RLE: 5, LLE: 5 Eye Response: (4) open spontaneously Motor Response: (6) obeys commands Verbal Response: (5) oriented [place] Total: 15 Psychiatric exam: Present: normal affect, normal mood Course Vital Signs 10/31/18 15:32 Temperature 98.4 F Pulse Rate 103 H Respiratory 20 Rate Blood Pressure 104/69 O2 Sat by Pulse 98 Oximetry EKG Findings - EKG Comments: EKG Findings:: Normal sinus rhythm, ventricular rate 83,. Vital 156, QRS duration 80, QTC 423 Medical Decision Making - Medical Decision Making 28-year-old female presents to the emergency room for a chief complaint of lightheadedness for 2 days only after waking up. States this resolved throughout the day. Denies any lightheadedness with standing. Denies any headaches. Denies any syncope. No fevers or chills. On exam patient is well- appearing, no focal neuro deficits. Heart rate initially 103 however did decreased to the 80s, patient was likely anxious. CBC CMP unremarkable. Urine negative for infection or . X-ray shows no acute process. Patient reevaluated, feeling much better after receiving fluids. Actually requesting discharge. Patient will be discharged home to follow up with primary care and return if she has any worsening symptoms. - Lab Data Result diagrams: 10/31/18 16:35 10/31/18 16:35 Lab Results 10/31/18 10/31/18 10/31/18 Range/Units 16:35 16:35 16:35 WBC 10.4 (3.8-10.6) k/uL RBC 5.08 (3.80-5.40) m/uL Hgb 14.6 (11.4-16.0) gm/dL Hct 45.4 (34.0-46.0) % MCV 89.4 (80.0-100.0) fL MCH 28.8 (25.0-35.0) pg MCHC 32.3 (31.0-37.0) g/dL RDW 13.0 (11.5-15.5) % Plt Count 300 (150-450) k/uL Neutrophils % 54 % Lymphocytes % 35 % Monocytes % 6 % Eosinophils % 2 % Basophils % 1 % Neutrophils # 5.6 (1.3-7.7) k/uL Lymphocytes # 3.7 (1.0-4.8) k/uL Monocytes # 0.6 (0-1.0) k/uL Eosinophils # 0.2 (0-0.7) k/uL Basophils # 0.1 (0-0.2) k/uL Sodium 143 (137-145) mmol/L Potassium 3.8 (3.5-5.1) mmol/L Chloride 108 H (98-107) mmol/L Carbon Dioxide 29 (22-30) mmol/L Anion Gap 6 mmol/L BUN 9 (7-17) mg/dL Creatinine 0.77 (0.52-1.04) mg/dL Est GFR (CKD-EPI)AfAm >90 (>60 ml/min/1.73 sqM) Est GFR (CKD-EPI)NonAf >90 (>60 ml/min/1.73 sqM) Glucose 85 (74-99) mg/dL Calcium 10.1 (8.4-10.2) mg/dL Total Bilirubin 0.4 (0.2-1.3) mg/dL AST 25 (14-36) U/L ALT 29 (9-52) U/L Alkaline Phosphatase 72 (38-126) U/L Troponin I (0.000-0.034) ng/mL Total Protein 7.6 (6.3-8.2) g/dL Albumin 4.5 (3.5-5.0) g/dL Urine Color Urine Appearance (Clear) Urine pH (5.0-8.0) Ur Specific [place] (1.001-1.035) Urine Protein (Negative) Urine Glucose (UA) (Negative) Urine Ketones (Negative) Urine Blood (Negative) Urine Nitrite (Negative) Urine Bilirubin (Negative) Urine Urobilinogen (<2.0) mg/dL Ur Leukocyte Esterase (Negative) Urine RBC (0-5) /hpf Urine WBC (0-5) /hpf Ur Squamous Epith Cells (0-4) /hpf Urine HCG, Qual Not Detected (Not Detectd) 10/31/18 10/31/18 Range/Units 16:35 16:35 WBC (3.8-10.6) k/uL RBC (3.80-5.40) m/uL Hgb (11.4-16.0) gm/dL Hct (34.0-46.0) % MCV (80.0-100.0) fL MCH (25.0-35.0) pg MCHC (31.0-37.0) g/dL RDW (11.5-15.5) % Plt Count (150-450) k/uL Neutrophils % % Lymphocytes % % Monocytes % % Eosinophils % % Basophils % % Neutrophils # (1.3-7.7) k/uL Lymphocytes # (1.0-4.8) k/uL Monocytes # (0-1.0) k/uL Eosinophils # (0-0.7) k/uL Basophils # (0-0.2) k/uL Sodium (137-145) mmol/L Potassium (3.5-5.1) mmol/L Chloride (98-107) mmol/L Carbon Dioxide (22-30) mmol/L Anion Gap mmol/L BUN (7-17) mg/dL Creatinine (0.52-1.04) mg/dL Est GFR (CKD-EPI)AfAm (>60 ml/min/1.73 sqM) Est GFR (CKD-EPI)NonAf (>60 ml/min/1.73 sqM) Glucose (74-99) mg/dL Calcium (8.4-10.2) mg/dL Total Bilirubin (0.2-1.3) mg/dL AST (14-36) U/L ALT (9-52) U/L Alkaline Phosphatase (38-126) U/L Troponin I <0.012 (0.000-0.034) ng/mL Total Protein (6.3-8.2) g/dL Albumin (3.5-5.0) g/dL Urine Color Light Yellow Urine Appearance Cloudy H (Clear) Urine pH 6.5 (5.0-8.0) Ur Specific [place] 1.006 (1.001-1.035) Urine Protein Negative (Negative) Urine Glucose (UA) Negative (Negative) Urine Ketones Negative (Negative) Urine Blood Negative (Negative) Urine Nitrite Negative (Negative) Urine Bilirubin Negative (Negative) Urine Urobilinogen <2.0 (<2.0) mg/dL Ur Leukocyte Esterase Negative (Negative) Urine RBC 3 (0-5) /hpf Urine WBC 4 (0-5) /hpf Ur Squamous Epith Cells 7 H (0-4) /hpf Urine HCG, Qual (Not Detectd) Disposition Clinical Impression: Dehydration, Light-headed Disposition: HOME SELF-CARE Condition: Good Instructions (If sedation given, give patient instructions): Lightheadedness (ED) Additional Instructions: Please follow up with primary care in 1-2 days. Please return here to the emergency department. Having any worsening symptoms. Is patient prescribed a controlled substance at d/c from ED?: No Referrals: Miguel Luna MD [REFERRING] - 1-2 days Time of Disposition: 18:34
[2018-10-31 16:54] LABS: Basophils # (A) 0.1 k/uL (0-0.2); Basophils % (A) 1 %; Eosinophils # (A) 0.2 k/uL (0-0.7); Eosinophils % (A) 2 %; HCT 45.4 % (34.0-46.0); HGB 14.6 gm/dL (11.4-16.0); Lymphocytes # (A) 3.7 k/uL (1.0-4.8); Lymphocytes % (A) 35 %; MCH 28.8 pg (25.0-35.0); MCHC 32.3 g/dL (31.0-37.0); MCV 89.4 fL (80.0-100.0); Monocytes # (A) 0.6 k/uL (0-1.0); Monocytes % (A) 6 %; Neutrophils # (A) 5.6 k/uL (1.3-7.7); Neutrophils % (A) 54 %; Platelet Count 300 k/uL (150-450); RBC 5.08 m/uL (3.80-5.40); WBC 10.4 k/uL (3.8-10.6)
[2018-10-31 17:04] LABS: Appearance,Urine Cloudy (Clear); Bilirubin,Urine Negative (Negative); Blood,Urine Negative (Negative); Color,Urine Light Yellow; Glucose,Urine (UA) Negative (Negative); Ketones,Urine Negative (Negative); Leukocyte Esterase,Urine Negative (Negative); Nitrite,Urine Negative (Negative); PH, Urine 6.5 (5.0-8.0); Protein,Urine Negative (Negative); RBC,Urine 3 /hpf (0-5); Specific Gravity,Urine 1.006 (1.001-1.035); Squamous Epithelial Cell,Urine 7 /hpf (0-4); Urobilinogen,Urine <2.0 mg/dL (<2.0); WBC,Urine 4 /hpf (0-5)
[2018-10-31 17:08] LABS: ALT 29 U/L (9-52); AST 25 U/L (14-36); Albumin 4.5 g/dL (3.5-5.0); Alkaline Phosphatase 72 U/L (38-126); Anion Gap 6 mmol/L; Blood Urea Nitrogen 9 mg/dL (7-17); Calcium 10.1 mg/dL (8.4-10.2); Carbon Dioxide 29 mmol/L (22-30); Chloride 108 mmol/L (98-107); Glucose 85 mg/dL (74-99); Potassium 3.8 mmol/L (3.5-5.1); Sodium 143 mmol/L (137-145); Total Bilirubin 0.4 mg/dL (0.2-1.3); Total Protein 7.6 g/dL (6.3-8.2)
--- NOTE | 2018-10-31 18:15 | XR ---
EXAMINATION: XR chest 2V DATE AND TIME: 10/31/2018 5:13 PM CLINICAL INDICATION: PHH; light headed TECHNIQUE: Departmental protocol COMPARISON: 05/10/2015 FINDINGS: The lungs are clear. The pleural spaces are negative. The cardiac silhouette is not enlarged. The remainder of the mediastinal silhouette is unremarkable. The skeletal structures and soft tissues are negative for acute findings. IMPRESSION: NO ACUTE PROCESS.
[2018-10-31 18:40] VITALS: BP 106/63; PULSE 68; RESP 16; TEMP 98.2
== END 2018-10-31 18:55 | disposition home or self-care (01) ==
LOC: EC 15:21
DX: E86.0 Dehydration (principal); F17.200 Nicotine dependence, unspecified, uncomplicated; Z87.19 Personal history of other diseases of the digestive system; Z90.49 Acquired absence of other specified parts of digestive tract; Z97.5 Presence of (intrauterine) contraceptive device; Z98.890 Other specified postprocedural states
CPT/HCPCS: 36415; 71046; 80053; 81001; 81025; 84484; 85025; 93005; 96360; 99284

== ENCOUNTER 2019-01-06 10:38 | Emergency (ER) | payer OTHER ==
[2019-01-06 10:45] VITALS: RESP 18
[2019-01-06] MEDS ORDERED: SODIUM CHLORIDE 0.9% 1,000 ML IV STA (10:57)
[2019-01-06 11:50] LABS: Basophils # (A) 0.1 k/uL (0-0.2); Basophils % (A) 1 %; Eosinophils # (A) 0.3 k/uL (0-0.7); Eosinophils % (A) 3 %; HCT 42.1 % (34.0-46.0); HGB 13.7 gm/dL (11.4-16.0); Lymphocytes # (A) 2.4 k/uL (1.0-4.8); Lymphocytes % (A) 23 %; MCH 29.8 pg (25.0-35.0); MCHC 32.5 g/dL (31.0-37.0); MCV 91.6 fL (80.0-100.0); Mean Platelet Volume 7.6; Monocytes # (A) 0.6 k/uL (0-1.0); Monocytes % (A) 5 %; Neutrophils # (A) 6.7 k/uL (1.3-7.7); Neutrophils % (A) 66 %; Platelet Count 287 k/uL (150-450); RBC 4.59 m/uL (3.80-5.40); RDW 14.8 % (11.5-15.5); WBC 10.1 k/uL (3.8-10.6)
[2019-01-06 11:58] LABS: ALT 31 U/L (9-52); AST 20 U/L (14-36); African American GFR (CKD) >90 (>60 ml/min/1.73 sqM); Albumin 4.1 g/dL (3.5-5.0); Alkaline Phosphatase 62 U/L (38-126); Anion Gap 11 mmol/L; Blood Urea Nitrogen 7 mg/dL (7-17); Calcium 9.7 mg/dL (8.4-10.2); Carbon Dioxide 21 mmol/L (22-30); Chloride 108 mmol/L (98-107); Glucose 112 mg/dL (74-99); Potassium 3.9 mmol/L (3.5-5.1); Sodium 140 mmol/L (137-145); Total Bilirubin 0.5 mg/dL (0.2-1.3)
[2019-01-06 11:59] LABS: Amorphous Sediment,Urine Occasional /hpf; Appearance,Urine Cloudy (Clear); Bacteria,Urine Rare /hpf; Bilirubin,Urine Negative (Negative); Blood,Urine Negative (Negative); Color,Urine Yellow; Glucose,Urine (UA) Negative (Negative); Ketones,Urine Negative (Negative); Leukocyte Esterase,Urine Small (Negative); Mucus,Urine Occasional /hpf; Nitrite,Urine Negative (Negative); PH, Urine 6.5 (5.0-8.0); Protein,Urine Trace (Negative); RBC,Urine 2 /hpf (0-5); Specific Gravity,Urine 1.021 (1.001-1.035); Squamous Epithelial Cell,Urine 31 /hpf (0-4)
--- NOTE | 2019-01-06 12:58 | US ---
EXAMINATION TYPE: Transabdominal DATE OF EXAM: 01/06/2019 12:41 PM COMPARISON: NONE CLINICAL HISTORY: Pain. Patient states she has a kidney infection EXAM PERFORMED: Transabdominal (TA) EXAM MEASUREMENTS: GESTATIONAL AGE / DATING Physician Established: Not established yet Dates by LMP: (6 weeks/6 days) EDC: 08/26/2019 Dates by First Scan: This is 1st scan Dates by Current Scan for: (6 weeks/1 days) EDC: 08/31/2019 MATERNAL ANATOMY Uterus: 10.9 x 3.7 x 5.0cm, anteverted Right Ovary: 3.0 x 1.2 x 2.6cm Left Ovary: 4.2 x 2.2 x 2.3cm Post CDS / Adnexa: wnl Presence of free fluid: no Presence of corpus luteal cyst: left ovary: 2.1 x 1.7 x 1.8cm Presence of subchorionic bleed: no GESTATION / SURVEY CRL: 0.4cm (6 weeks/1 days) Yolk Sac (normal less than 6mm): 3.3mm Heart Rate: 113 bpm Rhythm: Normal IUP: Viable IUP Date of LMP: 11/19/2018 Beta HcG (if available): Not available at time of exam Viable single IUP measuring 6 weeks 1 day with a heart rate of 113bpm and an estimated delivery date of 08/31/2019. Single viable intrauterine corresponding to ultrasound age 6 weeks 1 day with estimated tonia e of delivery 08/31/2019 by today's exam IMPRESSION:
--- NOTE | 2019-01-06 13:42 | ED ---
General Adult HPI - General Chief complaint: Urogenital Stated complaint: poss kidney infection Time Seen by Provider: 01/06/19 10:46 Source: patient, RN notes reviewed Mode of arrival: ambulatory Limitations: no limitations - History of Present Illness Initial comments: 28-year-old female presents emergency Department with concerns of possible urinary tract infection or pyelonephritis. Patient states that she's had some urinary frequency with mild dysuria. Patient states that she is with a positive test at home scheduled see Dr. Hernandez. Patient is A2. Patient has any vaginal bleeding, vaginal discharge or any abdominal cramping. Patient denies fever, chills, night sweats. - Related Data Home Medications Medication Instructions Recorded Confirmed Pnv No.95/Ferrous Fum/Folic AC 1 tab PO HS 01/06/19 01/06/19 [ Multivitamin Tablet] Allergies Allergy/AdvReac Type Severity Reaction Status Date / Time No Known Allergies Allergy Verified 01/06/19 10:58 Review of Systems ROS Statement: Those systems with pertinent positive or pertinent negative responses have been documented in the HPI. ROS Other: All systems not noted in ROS Statement are negative. Past Medical History Past Medical History: No Reported History Additional Past Medical History / Comment(s): Hx gallstones, cardiac ablation 2010, palpitations. History of Any Multi-Drug Resistant Organisms: None Reported Past Surgical History: Cardiac Ablation, Cholecystectomy Additional Past Surgical History / Comment(s): Left foot surgery, 2 laproscopic surgeries on ovaries, D&C, IUD placement. Past Anesthesia/Blood Transfusion Reactions: No Reported Reaction Past Psychological History: Anxiety Smoking Status: Current every day smoker Past Alcohol Use History: None Reported Past Drug Use History: None Reported - Past Family History Mother Family Medical History: Cancer Additional Family Medical History / Comment(s): ovarian General Exam Limitations: no limitations General appearance: alert, in no apparent distress Head exam: Present: atraumatic, normocephalic, normal inspection Eye exam: Present: normal appearance, PERRL, EOMI. Absent: scleral icterus, conjunctival injection, periorbital swelling ENT exam: Present: normal exam, mucous membranes moist Respiratory exam: Present: normal lung sounds bilaterally. Absent: respiratory distress, wheezes, rales, rhonchi, stridor Cardiovascular Exam: Present: regular rate, normal rhythm, normal heart sounds. Absent: systolic murmur, diastolic murmur, rubs, gallop, clicks GI/Abdominal exam: Present: soft, normal bowel sounds. Absent: distended, tenderness, guarding, rebound, rigid Back exam: Absent: CVA tenderness (R), CVA tenderness (L) Skin exam: Present: warm, dry, intact, normal color. Absent: rash Course Vital Signs 01/06/19 10:43 Temperature 97.8 F Pulse Rate 104 H Respiratory 18 Rate Blood Pressure 111/65 O2 Sat by Pulse 97 Oximetry Medical Decision Making - Medical Decision Making 28-year-old female presented for flank pain, concerns of urinary tract infection or kidney infection. Patient had lab work, ultrasound and urinalysis. Patient labs and ultrasound along with urinalysis unremarkable. Patient's symptoms are consistent with lumbar back pain. Patient we discharged she is advised to do daily stretching, take Tylenol return for any worsening symptoms. Patient has no red flag symptoms. - Lab Data Result diagrams: 01/06/19 11:30 01/06/19 11:30 Lab Results 01/06/19 01/06/19 01/06/19 Range/Units 11:30 11:30 11:30 WBC 10.1 (3.8-10.6) k/uL RBC 4.59 (3.80-5.40) m/uL Hgb 13.7 (11.4-16.0) gm/dL Hct 42.1 (34.0-46.0) % MCV 91.6 (80.0-100.0) fL MCH 29.8 (25.0-35.0) pg MCHC 32.5 (31.0-37.0) g/dL RDW 14.8 (11.5-15.5) % Plt Count 287 (150-450) k/uL Neutrophils % 66 % Lymphocytes % 23 % Monocytes % 5 % Eosinophils % 3 % Basophils % 1 % Neutrophils # 6.7 (1.3-7.7) k/uL Lymphocytes # 2.4 (1.0-4.8) k/uL Monocytes # 0.6 (0-1.0) k/uL Eosinophils # 0.3 (0-0.7) k/uL Basophils # 0.1 (0-0.2) k/uL Sodium 140 (137-145) mmol/L Potassium 3.9 (3.5-5.1) mmol/L Chloride 108 H (98-107) mmol/L Carbon Dioxide 21 L (22-30) mmol/L Anion Gap 11 mmol/L BUN 7 (7-17) mg/dL Creatinine 0.57 (0.52-1.04) mg/dL Est GFR (CKD-EPI)AfAm >90 (>60 ml/min/1.73 sqM) Est GFR (CKD-EPI)NonAf >90 (>60 ml/min/1.73 sqM) Glucose 112 H (74-99) mg/dL Calcium 9.7 (8.4-10.2) mg/dL Total Bilirubin 0.5 (0.2-1.3) mg/dL AST 20 (14-36) U/L ALT 31 (9-52) U/L Alkaline Phosphatase 62 (38-126) U/L Total Protein 7.0 (6.3-8.2) g/dL Albumin 4.1 (3.5-5.0) g/dL Lipase 220 (23-300) U/L HCG, Quant 42649.0 mIU/mL Urine Color Urine Appearance (Clear) Urine pH (5.0-8.0) Ur Specific [place] (1.001-1.035) Urine Protein (Negative) Urine Glucose (UA) (Negative) Urine Ketones (Negative) Urine Blood (Negative) Urine Nitrite (Negative) Urine Bilirubin (Negative) Urine Urobilinogen (<2.0) mg/dL Ur Leukocyte Esterase (Negative) Urine RBC (0-5) /hpf Urine WBC (0-5) /hpf Ur Squamous Epith Cells (0-4) /hpf Amorphous Sediment (None) /hpf Urine Bacteria (None) /hpf Urine Mucus (None) /hpf Blood Type O Positive Blood Type Recheck No 01/06/19 Range/Units 11:30 WBC (3.8-10.6) k/uL RBC (3.80-5.40) m/uL Hgb (11.4-16.0) gm/dL Hct (34.0-46.0) % MCV (80.0-100.0) fL MCH (25.0-35.0) pg MCHC (31.0-37.0) g/dL RDW (11.5-15.5) % Plt Count (150-450) k/uL Neutrophils % % Lymphocytes % % Monocytes % % Eosinophils % % Basophils % % Neutrophils # (1.3-7.7) k/uL Lymphocytes # (1.0-4.8) k/uL Monocytes # (0-1.0) k/uL Eosinophils # (0-0.7) k/uL Basophils # (0-0.2) k/uL Sodium (137-145) mmol/L Potassium (3.5-5.1) mmol/L Chloride (98-107) mmol/L Carbon Dioxide (22-30) mmol/L Anion Gap mmol/L BUN (7-17) mg/dL Creatinine (0.52-1.04) mg/dL Est GFR (CKD-EPI)AfAm (>60 ml/min/1.73 sqM) Est GFR (CKD-EPI)NonAf (>60 ml/min/1.73 sqM) Glucose (74-99) mg/dL Calcium (8.4-10.2) mg/dL Total Bilirubin (0.2-1.3) mg/dL AST (14-36) U/L ALT (9-52) U/L Alkaline Phosphatase (38-126) U/L Total Protein (6.3-8.2) g/dL Albumin (3.5-5.0) g/dL Lipase (23-300) U/L HCG, Quant mIU/mL Urine Color Yellow Urine Appearance Cloudy H (Clear) Urine pH 6.5 (5.0-8.0) Ur Specific [place] 1.021 (1.001-1.035) Urine Protein Trace H (Negative) Urine Glucose (UA) Negative (Negative) Urine Ketones Negative (Negative) Urine Blood Negative (Negative) Urine Nitrite Negative (Negative) Urine Bilirubin Negative (Negative) Urine Urobilinogen 2.0 (<2.0) mg/dL Ur Leukocyte Esterase Small H (Negative) Urine RBC 2 (0-5) /hpf Urine WBC 5 (0-5) /hpf Ur Squamous Epith Cells 31 H (0-4) /hpf Amorphous Sediment Occasional H (None) /hpf Urine Bacteria Rare H (None) /hpf Urine Mucus Occasional H (None) /hpf Blood Type Blood Type Recheck Disposition Clinical Impression: Lumbar back pain Disposition: HOME SELF-CARE Condition: Stable Instructions (If sedation given, give patient instructions): Back Pain (ED) Additional Instructions: Please return to the Emergency Department if symptoms worsen or any other concerns. Is patient prescribed a controlled substance at d/c from ED?: No Referrals: None,Stated [Primary Care Provider] - 1-2 days Time of Disposition: 13:42
[2019-01-06 14:03] VITALS: BP 98/55; PULSE 76
[2019-01-06 14:31] VITALS: TEMP 98.8
== END 2019-01-06 14:10 | disposition home or self-care (01) ==
LOC: EC 10:38
DX: O99.89 Other specified diseases and conditions complicating pregnancy, childbirth and the puerperium (principal); M54.5 Low back pain; R35.0 Frequency of micturition; R30.0 Dysuria; O99.331 Smoking (tobacco) complicating pregnancy, first trimester; F17.200 Nicotine dependence, unspecified, uncomplicated; Z98.890 Other specified postprocedural states; Z3A.01 Less than 8 weeks gestation of pregnancy
CPT/HCPCS: 36415; 76801; 80053; 81001; 83690; 84702; 85025; 86900; 86901; 96360; 99284

== ENCOUNTER 2019-02-07 12:07 | Emergency (ER) | payer OTHER ==
[2019-02-07 12:23] VITALS: TEMP 98.4
--- NOTE | 2019-02-07 13:13 | ED ---
Fall HPI - General Chief Complaint: Fall Stated Complaint: Fall Time Seen by Provider: 02/07/19 12:36 Source: patient Mode of arrival: ambulatory - History of Present Illness Initial Comments: Patient is a 28-year-old female presenting to the emergency department after falling onto her right hip today. Patient states she is 12 weeks and was worried about her baby. Patient was in the shower and slipped falling on to the side of the tub hitting the outside of her right hip. Patient is denying any abdominal pain or vaginal bleeding at this time. Patient reports some mild soreness of her right hip. Patient denies LOC, hitting her head or any other injuries at this time. Upon arrival to ER, vital signs stable, afebrile. - Related Data Home Medications Medication Instructions Recorded Confirmed Pnv No.95/Ferrous Fum/Folic AC 1 tab PO HS 01/06/19 01/06/19 [ Multivitamin Tablet] Allergies Allergy/AdvReac Type Severity Reaction Status Date / Time No Known Allergies Allergy Verified 02/07/19 12:19 Review of Systems ROS Statement: Those systems with pertinent positive or pertinent negative responses have been documented in the HPI. ROS Other: All systems not noted in ROS Statement are negative. Past Medical History Past Medical History: No Reported History Additional Past Medical History / Comment(s): Hx gallstones, cardiac ablation 20 11, palpitations. History of Any Multi-Drug Resistant Organisms: None Reported Past Surgical History: Cardiac Ablation, Cholecystectomy Additional Past Surgical History / Comment(s): Left foot surgery, 2 laproscopic surgeries on ovaries, D&C, IUD placement. Past Anesthesia/Blood Transfusion Reactions: No Reported Reaction Past Psychological History: Anxiety Smoking Status: Current every day smoker Past Alcohol Use History: None Reported Past Drug Use History: None Reported - Past Family History Mother Family Medical History: Cancer Additional Family Medical History / Comment(s): ovarian General Exam - General Exam Comments Initial Comments: GENERAL: Well-appearing, well-nourished and in no acute distress. HEAD: Atraumatic, normocephalic. EYES: Pupils equal round and reactive to light, extraocular movements intact, sclera anicteric, conjunctiva are normal. ENT: TMs normal, nares patent, oropharynx clear without exudates. Moist mucous membranes. NECK: Normal range of motion, supple without lymphadenopathy or JVD. LUNGS: Breath sounds clear to auscultation bilaterally and equal. No wheezes rales or rhonchi. HEART: Regular rate and rhythm without murmurs, rubs or gallops. ABDOMEN: Soft, nontender, normoactive bowel sounds. No guarding, no rebound. No masses appreciated. : Deferred EXTREMITIES: Mild tenderness to the lateral aspect the right hip. Normal range of motion, no pitting or edema. No clubbing or cyanosis. NEUROLOGICAL: Cranial nerves II through XII grossly intact. Normal speech, normal gait. PSYCH: Normal mood, normal affect. SKIN: Warm, Dry, normal turgor, no rashes or lesions noted. Limitations: no limitations Course Vital Signs 02/07/19 02/07/19 12:19 13:24 Temperature 98.4 F Pulse Rate 98 90 Respiratory 18 14 Rate Blood Pressure 136/72 134/70 O2 Sat by Pulse 98 98 Oximetry Medical Decision Making - Medical Decision Making Patient is a 20-year-old female presenting after slipping and falling in the bathtub today. Patient is 12 weeks . Patient has some mild soreness to the lateral aspect of the right hip. No abdominal pain, no vaginal bleeding. Rest of exam is unremarkable. Patient is stable for discharge at this time. Patient will follow-up with OB/UA and in 2 weeks for her regular visit. Return parameters were discussed with the patient she verbalized understanding. Case discussed with Dr. Larose. Disposition Clinical Impression: Fall, Right hip pain Disposition: HOME SELF-CARE Condition: Stable Instructions (If sedation given, give patient instructions): Hip Pain (ED) Additional Instructions: Please return to the Emergency Department if symptoms worsen or any other concerns. Follow-up with [facility] as discussed. Is patient prescribed a controlled substance at d/c from ED?: No Referrals: None,Stated [Primary Care Provider] - 1-2 days
[2019-02-07 13:27] VITALS: BP 134/70; PULSE 90; RESP 14
== END 2019-02-07 13:24 | disposition home or self-care (01) ==
LOC: EC 12:07
DX: O9A.211 Injury, poisoning and certain other consequences of external causes complicating pregnancy, first trimester (principal); M25.551 Pain in right hip; S79.911A Unspecified injury of right hip, initial encounter; O99.331 Smoking (tobacco) complicating pregnancy, first trimester; F17.200 Nicotine dependence, unspecified, uncomplicated; Z3A.12 12 weeks gestation of pregnancy; Z79.899 Other long term (current) drug therapy; Z92.0 Personal history of contraception; W18.2XXA Fall in (into) shower or empty bathtub, initial encounter; Y92.002 Bathroom of unspecified non-institutional (private) residence as the place of occurrence of the external cause
CPT/HCPCS: 99283

== ENCOUNTER → 2019-02-14 | Outpatient (CLI) | payer OTHER ==
[2019-02-14 18:59] LABS: African American GFR (CKD) 143.8 (60.0-200.0)
[2019-02-15 13:43] LABS: C. trachomatis,PCR Negative (Neg,Equiv); Chlamydia trachomatis Source Urine; N. gonorrhoeae,PCR Negative (Neg,Equiv); Neisseria Source Urine
== END | disposition home or self-care (01) ==
LOC: LABWHC1 12:41
PROVIDERS: ATTEND Obstetrics & Gynecology
DX: Z34.81 Encounter for supervision of other normal pregnancy, first trimester (principal)
CPT/HCPCS: 36415; 82565; 86762; 86780; 87340; 87491; 87591

== ENCOUNTER 2019-08-02 14:09 | Outpatient (CLI) | payer OTHER ==
[2019-08-02 14:57] LABS: Amorphous Sediment,Urine Rare /hpf; Appearance,Urine Cloudy (Clear); Bacteria,Urine Rare /hpf; Bilirubin,Urine Negative (Negative); Blood,Urine Negative (Negative); Color,Urine Yellow; Glucose,Urine (UA) Negative (Negative); Ketones,Urine Negative (Negative); Leukocyte Esterase,Urine Trace (Negative); Mucus,Urine Rare /hpf; Nitrite,Urine Negative (Negative); PH, Urine 6.5 (5.0-8.0); Protein,Urine Negative (Negative); Specific Gravity,Urine 1.014 (1.001-1.035); Squamous Epithelial Cell,Urine 4 /hpf (0-4); Urobilinogen,Urine <2.0 mg/dL (<2.0); WBC,Urine 2 /hpf (0-5)
[2019-08-02 16:09] VITALS: BP 116/66; PULSE 93; RESP 16; TEMP 98.2
--- NOTE | 2019-08-03 07:03 | P.MSEPDOC ---
Presenting Problems - Arrival Data Date of Arrival on Unit: 08/02/19 Time of Arrival on Unit: 14:10 Mode of Transport: Ambulatory - Complaint OB-Reason for Admission/Chief Complaint: Other Comment: pt arrived c/o lower abd discomfort and discomfort in her cervix area for 2 days but denies any leaking of fluid Medical History - Information : 3 Para: 2 Term: 2 : 0 Abortions: Spontaneous or Elective: 0 Number of Living Children: 2 - Gestational Age Gestational Age by BENJAMIN (wks/days): 36 Weeks and 2 Days Review of Systems - Review of Systems Constitutional: No problems Breast: No problems ENT: No problems Cardiovascular: No problems Respiratory: No problems Gastrointestinal: No problems Genitourinary: No problems Musculoskeletal: No problems Neurological: No problems Skin: No problems Vital Signs - Temperature Temperature: 98.2 F Temperature Source: Oral - Pulse Right Brachial Pulse Rate: 93 Pulse Assessment Method: Automatic Cuff - Respirations Respiratory Rate: 16 Oxygen Delivery Method: Room Air - Blood Pressure Right Arm Blood Pressure: 116/66 Blood Pressure Mean: 82 Blood Pressure Source: Automatic Cuff Medical Screen Scoring (Pre) - Cervical Exam Dilation: 1-3 cm = 1 Membranes: Intact - Uterine Contractions Frequency: > 5 minutes apart = 1 Intensity: N/A - Maternal Vital Signs Maternal Temperature: N/A Signs of Preeclampsia: N/A Maternal Respirations: N/A - Maternal Trauma Maternal Trauma: N/A - Assessment - Baby A Baseline FHR: 130 Heart Rate - NICHD Category: Category I (Normal) = 0 NST: Reactive Position: N/A Station: N/A - Total Score - Baby A Total Score - Baby A: 2 - Total Score - Baby B Total Score - Baby B: 2 - Total Score - Baby C Total Score - Baby C: 2 - Level of Risk - Baby A Level of Risk - Baby A: Low (0-5) - Level of Risk - Baby B Level of Risk - Baby B: Low (0-5) - Level of Risk - Baby C Level of Risk - Baby C: Low (0-5) Physician Notification (Pre) - Physician Notified Physician Notified Date: 08/02/19 Physician Notified Time: 15:41 New Order Received: Yes - Notification Comment Comment: reactive nst cervix 1cm and thick membranes intact. may discharge to home undelivered with instructions Disposition - Disposition OB Disposition: Discharge to home Discharge Date: 08/02/19 Discharge Time: 16:00 I agree with the RN Medical Screening Exam: Yes Risk & Benefit of care provided described in d/c instruction: Yes Diagnosis: FALSE LABOR BEFORE 37 COMPLETED WEEKS OF GEST, THIRD TRI
== END 2019-08-02 16:00 | disposition home or self-care (01) ==
LOC: FBPOP 14:09
PROVIDERS: ATTEND Obstetrics & Gynecology
DX: O47.03 False labor before 37 completed weeks of gestation, third trimester (principal); Z3A.36 36 weeks gestation of pregnancy
CPT/HCPCS: 59025; 81001; G0463; 99213

== ENCOUNTER 2019-08-21 06:30 | Inpatient (IN) | payer OTHER ==
[2019-08-21] MEDS: LACTATED RINGERS 1,000 ML IV SCH ×3 (07:30→19:37)
[2019-08-21] MEDS ORDERED: LIDOCAINE 0.5% (PF) 5 MG/ML (50 ML SDV) SQ PRN (07:31)
[2019-08-21] MEDS ORDERED: METHYLERGONOVINE 0.2 MG/ML 1 ML AMP IM PRN (07:31)
[2019-08-21] MEDS ORDERED: CARBOPROST TROMETHAMINE 250 MCG/ML 1 ML AMP IM PRN (07:31)
[2019-08-21] MEDS ORDERED: TERBUTALINE 1 MG/ML VIAL SQ PRN (07:31)
[2019-08-21] MEDS ORDERED: OXYTOCIN 10 UNIT/ML 1 ML VIAL IM PRN (07:31)
[2019-08-21 08:27] LABS: Basophils % (A) 0 %; Eosinophils # (A) 0.1 k/uL (0-0.7); Eosinophils % (A) 1 %; HCT 40.8 % (34.0-46.0); HGB 12.9 gm/dL (11.4-16.0); Lymphocytes # (A) 2.8 k/uL (1.0-4.8); Lymphocytes % (A) 19 %; MCH 28.1 pg (25.0-35.0); MCHC 31.5 g/dL (31.0-37.0); MCV 89.1 fL (80.0-100.0); Mean Platelet Volume 9.3; Monocytes # (A) 0.8 k/uL (0-1.0); Monocytes % (A) 5 %; Neutrophils # (A) 11.1 k/uL (1.3-7.7); Neutrophils % (A) 73 %; Platelet Count 304 k/uL (150-450); RBC 4.58 m/uL (3.80-5.40); RDW 14.9 % (11.5-15.5); WBC 15.2 k/uL (3.8-10.6)
[2019-08-21] MEDS ORDERED: OXYTOCIN 30 UNITS/500 ML NS 30 UNIT in SALINE 1 500ML.BAG IV SCH (10:45)
[2019-08-21] MEDS ORDERED: SODIUM CHLORIDE 0.9% 100 ML BAG ONE (11:33)
[2019-08-21] MEDS ORDERED: ROPIVACAINE 5MG/ML 20ML VIAL ONE (11:33)
[2019-08-21] MEDS ORDERED: fentaNYL (PF) 50 MCG/ML 5 ML AMP ONE (11:33)
[2019-08-21] MEDS ORDERED: WITCH HAZEL 1 EACH MED..PAD TOPICAL PRN (13:31)
[2019-08-21] MEDS ORDERED: ZOLPIDEM 5 MG TAB PO PRN (13:31)
[2019-08-21] MEDS ORDERED: diphenhydrAMINE 50 MG/ML 1 ML VIAL IVP PRN ×2 (13:31)
[2019-08-21] MEDS ORDERED: diphenhydrAMINE 50 MG CAP PO PRN (13:31)
[2019-08-21] MEDS ORDERED: LANOLIN CREAM 5 GM TUBE TOPICAL PRN (13:31)
[2019-08-21] MEDS ORDERED: BENZOCAINE/MENTHOL SPRAY 1 GM/SPRAY AEROSOL TOPICAL PRN (13:31)
[2019-08-21] MEDS ORDERED: HYDROCORTISONE 2.5% RECTAL CREAM 30 GM TUBE RECTAL PRN (13:31)
[2019-08-21] MEDS ORDERED: SIMETHICONE 80 MG CHEWABLE PO PRN (13:31)
[2019-08-21] MEDS ORDERED: diphenhydrAMINE 25 MG CAP PO PRN (13:31)
--- NOTE | 2019-08-21 13:33 | P.HPOB ---
History of Present Illness H&P Date: 08/21/19 Chief Complaint: Intrauterine term Ann Marie is a 29-year-old at 39 weeks gestation who arrives for induction of labor. Her course was generally unremarkable and she is feeling well at this time. Pertinent labs included O+ blood type, Rh and it was negative, rubella was immune, hepatitis B surface antigen and GBS were both negative. All questions are answered for her and she understands Pitocin augmentation of labor. She plans she is an epidural for analgesia. She was dilated 2 cm 7% effaced -2 station artificial rupture membranes was performed and clear fluid is noted. A category 1 tracing is otherwise noted. Past Medical History Past Medical History: No Reported History Additional Past Medical History / Comment(s): Hx gallstones, cardiac ablation 2010, palpitations. History of Any Multi-Drug Resistant Organisms: None Reported Past Surgical History: Cardiac Ablation, Cholecystectomy Additional Past Surgical History / Comment(s): Left foot surgery, 2 laproscopic surgeries on ovaries, D&C, IUD placement. Past Anesthesia/Blood Transfusion Reactions: No Reported Reaction Past Psychological History: Anxiety Smoking Status: Current every day smoker Past Alcohol Use History: None Reported Additional Past Alcohol Use History / Comment(s): Has been smoking <1/2 PPD for 8 yrs. Past Drug Use History: None Reported - Past Family History Mother Family Medical History: Cancer Additional Family Medical History / Comment(s): ovarian Medications and Allergies Home Medications Medication Instructions Recorded Confirmed Type Pnv No.95/Ferrous Fum/Folic AC 1 tab PO HS 01/06/19 08/21/19 History [ Multivitamin Tablet] Allergies Allergy/AdvReac Type Severity Reaction Status Date / Time No Known Allergies Allergy Verified 08/02/19 14:25 Exam Osteopathic Statement: *. No significant issues noted on an osteopathic structural exam other than those noted in the History and Physical/Consult. Vital Signs Temp Pulse Resp BP 08/21/19 07:28 98.0 F 101 H 16 118/74 Intake and Output 08/20/19 08/21/19 08/21/19 22:59 06:59 14:59 Other: Weight 87.09 kg - OBG Physical Exam Breast: both: normal (no masses) Abdomen: bowel sounds normal, no diffuse tenderness, no bruit present, no guar ding noted, no hepatomegaly, no splenomegaly, no mass Vulva: both: normal Vagina: normal moisture, no discharge Cervix: no lesion, no discharge Uterus: normal size, normal contour Adnexa: both: normal Anus/Rectum: normal perianal skin, no rectal mass, no hemorrhoids, heme negative Results Result Diagrams: 08/21/19 07:15 Abnormal Lab Results - Last 24 Hours (Table) 08/21/19 Range/Units 07:15 WBC 15.2 H (3.8-10.6) k/uL Neutrophils # 11.1 H (1.3-7.7) k/uL
--- NOTE | 2019-08-21 13:34 | P.PROBDLV ---
Vaginal Delivery Note - . Vaginal Delivery Note: Ann Marie progressed complete and pushing with spontaneous vaginal delivery of a viable male over an intact perineum. Following delivery of the head from left occiput anterior position anterior posterior shoulders were easily delivered followed by the remainder the baby. Mouth nares were then bulb suctioned and baby was placed on mother's abdomen where the umbilical cord was allowed to pulsate for 30 seconds prior to clamping and cutting. Nursery personnel was present and assumed care. Placenta was then delivered intact and Pitocin was added to the IV. scores were 9 and 9 at one and 5 minutes respectively and the weight was 5 lbs. 14 oz. Both mother and baby are stable following delivery.
[2019-08-21] MEDS ORDERED: OXYTOCIN 20 UNITS/1000 ML NS 1,000 ML IV SCH (13:45)
[2019-08-21] MEDS: IBUPROFEN 600 MG TAB PO PRN ×2 (18:44→23:44)
[2019-08-21] MEDS: ACETAMINOPHEN TAB 325 MG TAB PO PRN (19:59)
[2019-08-21] MEDS: SENNOSIDES-DOCUSATE SODIUM 1 EACH TAB PO SCH (21:14)
[2019-08-22] MEDS: ACETAMINOPHEN TAB 325 MG TAB PO PRN ×2 (04:24→12:26)
[2019-08-22] MEDS: IBUPROFEN 600 MG TAB PO PRN ×2 (07:19→15:21)
[2019-08-22] MEDS: SENNOSIDES-DOCUSATE SODIUM 1 EACH TAB PO SCH (08:34)
--- NOTE | 2019-08-22 08:39 | P.DS ---
Providers Date of admission: 08/21/19 06:40 Expected date of discharge: 08/22/19 Attending physician: Kvng Bansal Primary care physician: Stated None Hospital Course: Ann Marie is doing very well post day 1. She is ambulating, voiding and tolerating her diet. She voices no complaints and is requesting discharge home today. Vital signs are stable and afebrile. Heart regular, lungs clear, extremities without pain. Abdomen soft uterus is firm and lochia is reported to be light. She does have some mild back pain but it may be just that or status post epidural. We'll continue to monitor that outpatient. All the questions are answered for her at this time and she is stable for discharge at this time. Discharge instructions are thoroughly reviewed and all questions were answered for her prior to discharge. Patient Condition at Discharge: Good Plan - Discharge Summary New Discharge Prescriptions: No Action Pnv No.95/Ferrous Fum/Folic AC [ Multivitamin Tablet] 1 tab PO HS Discharge Medication List Pnv No.95/Ferrous Fum/Folic AC [ Multivitamin Tablet] 1 tab PO HS 01/06/19 [History] Follow up Appointment(s)/Referral(s): Kvng Bansal DO [Doctor of Osteopathic Medicine] - 6 Weeks Activity/Diet/Wound Care/Special Instructions: No heavy lifting, limit stairs and driving, and pelvic rest. If any high temperatures, heavy bleeding, or severe pain call my office Discharge Disposition: HOME SELF-CARE
[2019-08-22 09:44] VITALS: RESP 16
[2019-08-22 12:25] VITALS: BP 112/70; PULSE 85; TEMP 98.1
== END 2019-08-22 15:30 | disposition home or self-care (01) | DRG 807 ==
LOC: 4FBP 06:40
PROVIDERS: ADMIT Obstetrics & Gynecology; ATTEND Obstetrics & Gynecology
PROC: 10E0XZZ Delivery of Products of Conception, External Approach (ICD-10-PCS; principal; 2019-08-21)
PROC: 10907ZC Drainage of Amniotic Fluid, Therapeutic from Products of Conception, Via Natural or Artificial Opening (ICD-10-PCS; 2019-08-21)
PROC: 3E033VJ Introduction of Other Hormone into Peripheral Vein, Percutaneous Approach (ICD-10-PCS; 2019-08-21)
PROC: 3E0R3BZ Introduction of Anesthetic Agent into Spinal Canal, Percutaneous Approach (ICD-10-PCS; 2019-08-21)
DX: O99.334 Smoking (tobacco) complicating childbirth (principal); Z37.0 Single live birth; F17.210 Nicotine dependence, cigarettes, uncomplicated; Z87.19 Personal history of other diseases of the digestive system; Z86.79 Personal history of other diseases of the circulatory system; Z90.49 Acquired absence of other specified parts of digestive tract; Z98.890 Other specified postprocedural states; Z86.59 Personal history of other mental and behavioral disorders; Z80.41 Family history of malignant neoplasm of ovary; Z79.899 Other long term (current) drug therapy; Z3A.39 39 weeks gestation of pregnancy
CPT/HCPCS: 85025; 86850; 86900; 86901

== ENCOUNTER → 2020-03-30 | Outpatient (CLI) | payer OTHER ==
--- NOTE | 2020-03-30 13:54 | US ---
EXAMINATION TYPE: US pelvic complete DATE OF EXAM: 03/30/2020 COMPARISON: NONE CLINICAL HISTORY: 29-year-old female Z97.5 IUD placement. Kyleena IUD put in place October 2019 TECHNIQUE: Transabdominal sonographic images of the pelvis were acquired. *Patient did want want TV * Date of LMP: unknown FINDINGS: EXAM MEASUREMENTS: Uterus: 8.9 x 3.6 x 4.3 cm Endometrial Stripe: 0.1 cm Right Ovary: 2.5 x 1.7 x 1.7 cm Left Ovary: 2.5 x 2.2 x 2.1 cm 1. Uterus: Anteverted and wnl 2. Endometrium: IUD seen very low within CATIE (lower uterine segment) 3. Right Ovary: wnl 4. Left Ovary: wnl 5. Bilateral Adnexa: wnl 6. Posterior cul-de-sac: wnl IMPRESSION: 1. IUD positioned very low along the level of the lower uterine segment. 2. No pelvic free fluid.
== END | disposition home or self-care (01) ==
LOC: RADUSWWP 10:58
PROVIDERS: ATTEND Obstetrics & Gynecology
DX: Z97.5 Presence of (intrauterine) contraceptive device (principal)
CPT/HCPCS: 76856

== ENCOUNTER 2020-09-01 10:14 | Emergency (ER) | payer OTHER ==
[2020-09-01 10:37] VITALS: PULSE 80; RESP 16; TEMP 97.6
[2020-09-01] MEDS ORDERED: SODIUM CHLORIDE 0.9% 1,000 ML IV STA (10:55)
[2020-09-01] MEDS ORDERED: PANTOPRAZOLE 40 MG/10 ML VIAL IVP STA (10:56)
[2020-09-01] MEDS ORDERED: KETOROLAC 15 MG/ML 1 ML VIAL IVP STA (10:56)
[2020-09-01 11:22] LABS: Amorphous Sediment,Urine Occasional /hpf; Appearance,Urine Cloudy (Clear); Bacteria,Urine Rare /hpf; Bilirubin,Urine Negative (Negative); Blood,Urine Negative (Negative); Color,Urine Light Yellow; Glucose,Urine (UA) Negative (Negative); Ketones,Urine Negative (Negative); Leukocyte Esterase,Urine Small (Negative); Nitrite,Urine Negative (Negative); PH, Urine 6.5 (5.0-8.0); Protein,Urine Negative (Negative); Specific Gravity,Urine 1.004 (1.001-1.035); Squamous Epithelial Cell,Urine 15 /hpf (0-4); Urobilinogen,Urine <2.0 mg/dL (<2.0); WBC,Urine 13 /hpf (0-5)
[2020-09-01 11:22] LABS: Basophils % (A) 0 %; Eosinophils # (A) 0.2 k/uL (0-0.7); Eosinophils % (A) 2 %; Lymphocytes # (A) 2.8 k/uL (1.0-4.8); Lymphocytes % (A) 37 %; MCHC 34.2 g/dL (31.0-37.0); MCV 87.6 fL (80.0-100.0); Mean Platelet Volume 7.6; Monocytes # (A) 0.3 k/uL (0-1.0); Monocytes % (A) 4 %; Neutrophils # (A) 4.1 k/uL (1.3-7.7); Neutrophils % (A) 55 %; Platelet Count 275 k/uL (150-450); RBC 4.68 m/uL (3.80-5.40); RDW 13.6 % (11.5-15.5); WBC 7.4 k/uL (3.8-10.6)
--- NOTE | 2020-09-01 11:23 | ED ---
Abdominal Pain HPI - General Chief Complaint: Abdominal Pain Stated Complaint: Hernia Time Seen by Provider: 09/01/20 10:43 Source: patient Mode of arrival: ambulatory Limitations: no limitations - History of Present Illness Initial Comments: Patient is a 30-year-old female presenting to emergency Department with complaints of a feeling like something gets stuck in her throat over the past 3- 4 weeks. She is also having some mild epigastric pain. She denies any radiation, some very mild nausea, no vomiting. No fevers or chills. She has history of cholecystectomy, 2 laparoscopic surgeries on her ovaries. No other abdominal surgeries. She denies being . She denies any chest pains or shortness of breath, no cough. She does not have a PCP and has not seen anybody for this issue. She has no further complaints at this time. Upon arrival to the ER her vital signs are stable. - Related Data Home Medications Medication Instructions Recorded Confirmed No Known Home Medications 09/01/20 09/01/20 Allergies Allergy/AdvReac Type Severity Reaction Status Date / Time No Known Allergies Allergy Verified 09/01/20 12:28 Review of Systems ROS Statement: Those systems with pertinent positive or pertinent negative responses have been documented in the HPI. ROS Other: All systems not noted in ROS Statement are negative. Past Medical History Past Medical History: No Reported History Additional Past Medical History / Comment(s): Hx gallstones, palpitations. History of Any Multi-Drug Resistant Organisms: None Reported Past Surgical History: Cardiac Ablation, Cholecystectomy Additional Past Surgical History / Comment(s): Left foot surgery, 2 laproscopic surgeries on ovaries, D&C, Past Anesthesia/Blood Transfusion Reactions: No Reported Reaction Past Psychological History: Anxiety Smoking Status: Current every day smoker Past Alcohol Use History: Occasional Past Drug Use History: None Reported - Past Family History Mother Family Medical History: Cancer Additional Family Medical History / Comment(s): ovarian General Exam - General Exam Comments Initial Comments: GENERAL: Patient is well-developed and well-nourished. Patient is nontoxic and in no acute distress. HEAD: Atraumatic, normocephalic. EYES: Pupils equal round and reactive to light, extraocular movements intact, sclera anicteric, conjunctiva are normal. Eyelids were unremarkable. ENT: TMs normal, nares patent, oropharynx clear without exudates. Moist mucous membranes. NECK: Normal range of motion, supple without lymphadenopathy or JVD. LUNGS: Unlabored respirations. Breath sounds clear to auscultation bilaterally and equal. No wheezes rales or rhonchi. HEART: Regular rate and rhythm without murmurs, rubs or gallops. ABDOMEN: Soft, mild epigastric tenderness, normoactive bowel sounds. No guarding, no rebound. No masses appreciated. : Deferred MUSCULOSKELETAL: Normal extremities with adequate strength and normal range of motion, no pitting or edema. No clubbing or cyanosis. NEUROLOGICAL: Patient is alert and oriented x 3. Motor and sensory are also intact. Cranial nerves II through XII grossly intact. Symmetrical smile. Normal speech, normal gait. PSYCH: Normal mood, normal affect. SKIN: Warm, Dry, normal turgor, no rashes or lesions noted. Limitations: no limitations Course Vital Signs 09/01/20 10:34 Temperature 97.6 F Pulse Rate 80 Respiratory 16 Rate O2 Sat by Pulse 99 Oximetry Medical Decision Making - Medical Decision Making Patient is a 30-year-old female here for some mild epigastric pain and also the feeling of food get stuck in her throat over the past 3-4 weeks. Vital signs are stable. Labs are completely unremarkable, urine is normal. Chest x-ray and KUB also showed no acute process. Patient was given some fluids and Toradol and Zofran. She's been sitting here asymptomatic. I discussed these findings with the patient. I recommended following up with a PCP as well as a GI doctor for possible scope. Patient states she does not have a PCP, I will give her a few referrals, she states she has seen Dr. Pace in the past and I will give her referral to her. Patient is stable for discharge. Patient is in agreement with this plan of care. Return parameters were discussed with the patient and they verbalized understanding. Case discussed with Dr. Herrera. - Lab Data Result diagrams: 09/01/20 11:08 09/01/20 11:08 Lab Results 09/01/20 09/01/20 09/01/20 Range/Units 10:51 10:51 11:08 WBC 7.4 (3.8-10.6) k/uL RBC 4.68 (3.80-5.40) m/uL Hgb 14.0 (11.4-16.0) gm/dL Hct 41.0 (34.0-46.0) % MCV 87.6 (80.0-100.0) fL MCH 30.0 (25.0-35.0) pg MCHC 34.2 (31.0-37.0) g/dL RDW 13.6 (11.5-15.5) % Plt Count 275 (150-450) k/uL MPV 7.6 Neutrophils % 55 % Lymphocytes % 37 % Monocytes % 4 % Eosinophils % 2 % Basophils % 0 % Neutrophils # 4.1 (1.3-7.7) k/uL Lymphocytes # 2.8 (1.0-4.8) k/uL Monocytes # 0.3 (0-1.0) k/uL Eosinophils # 0.2 (0-0.7) k/uL Basophils # 0.0 (0-0.2) k/uL Sodium (137-145) mmol/L Potassium (3.5-5.1) mmol/L Chloride (98-107) mmol/L Carbon Dioxide (22-30) mmol/L Anion Gap mmol/L BUN (7-17) mg/dL Creatinine (0.52-1.04) mg/dL Est GFR (CKD-EPI)AfAm (>60 ml/min/1.73 sqM) Est GFR (CKD-EPI)NonAf (>60 ml/min/1.73 sqM) Glucose (74-99) mg/dL Calcium (8.4-10.2) mg/dL Total Bilirubin (0.2-1.3) mg/dL AST (14-36) U/L ALT (4-34) U/L Alkaline Phosphatase (38-126) U/L Total Protein (6.3-8.2) g/dL Albumin (3.5-5.0) g/dL Lipase (23-300) U/L Urine Color Light Yellow Urine Appearance Cloudy H (Clear) Urine pH 6.5 (5.0-8.0) Ur Specific [place] 1.004 (1.001-1.035) Urine Protein Negative (Negative) Urine Glucose (UA) Negative (Negative) Urine Ketones Negative (Negative) Urine Blood Negative (Negative) Urine Nitrite Negative (Negative) Urine Bilirubin Negative (Negative) Urine Urobilinogen <2.0 (<2.0) mg/dL Ur Leukocyte Esterase Small H (Negative) Urine WBC 13 H (0-5) /hpf Ur Squamous Epith Cells 15 H (0-4) /hpf Amorphous Sediment Occasional H (None) /hpf Urine Bacteria Rare H (None) /hpf Urine HCG, Qual Not Detected (Not Detectd) 09/01/20 Range/Units 11:08 WBC (3.8-10.6) k/uL RBC (3.80-5.40) m/uL Hgb (11.4-16.0) gm/dL Hct (34.0-46.0) % MCV (80.0-100.0) fL MCH (25.0-35.0) pg MCHC (31.0-37.0) g/dL RDW (11.5-15.5) % Plt Count (150-450) k/uL MPV Neutrophils % % Lymphocytes % % Monocytes % % Eosinophils % % Basophils % % Neutrophils # (1.3-7.7) k/uL Lymphocytes # (1.0-4.8) k/uL Monocytes # (0-1.0) k/uL Eosinophils # (0-0.7) k/uL Basophils # (0-0.2) k/uL Sodium 137 (137-145) mmol/L Potassium 3.9 (3.5-5.1) mmol/L Chloride 104 (98-107) mmol/L Carbon Dioxide 26 (22-30) mmol/L Anion Gap 7 mmol/L BUN 10 (7-17) mg/dL Creatinine 0.69 (0.52-1.04) mg/dL Est GFR (CKD-EPI)AfAm >90 (>60 ml/min/1.73 sqM) Est GFR (CKD-EPI)NonAf >90 (>60 ml/min/1.73 sqM) Glucose 89 (74-99) mg/dL Calcium 9.5 (8.4-10.2) mg/dL Total Bilirubin 0.5 (0.2-1.3) mg/dL AST 18 (14-36) U/L ALT 17 (4-34) U/L Alkaline Phosphatase 78 (38-126) U/L Total Protein 7.2 (6.3-8.2) g/dL Albumin 4.4 (3.5-5.0) g/dL Lipase 65 (23-300) U/L Urine Color Urine Appearance (Clear) Urine pH (5.0-8.0) Ur Specific [place] (1.001-1.035) Urine Protein (Negative) Urine Glucose (UA) (Negative) Urine Ketones (Negative) Urine Blood (Negative) Urine Nitrite (Negative) Urine Bilirubin (Negative) Urine Urobilinogen (<2.0) mg/dL Ur Leukocyte Esterase (Negative) Urine WBC (0-5) /hpf Ur Squamous Epith Cells (0-4) /hpf Amorphous Sediment (None) /hpf Urine Bacteria (None) /hpf Urine HCG, Qual (Not Detectd) Disposition Clinical Impression: Epigastric pain, Food sticks on swallowing Disposition: HOME SELF-CARE Condition: Stable Instructions (If sedation given, give patient instructions): Abdominal Pain (ED) Additional Instructions: Please return to the Emergency Department if symptoms worsen or any other concerns. These follow-up with primary care physicians as discussed as well as surgery/GI. Is patient prescribed a controlled substance at d/c from ED?: No Referrals: None,Stated [Primary Care Provider] - 1-2 days Miguel Luna MD [REFERRING] - 1-2 days Andreas Menchaca [STAFF PHYSICIAN] - 1-2 days Chasity Burroughs MD [STAFF PHYSICIAN] - 1-2 days
[2020-09-01 11:38] LABS: ALT 17 U/L (4-34); AST 18 U/L (14-36); African American GFR (CKD) >90 (>60 ml/min/1.73 sqM); Albumin 4.4 g/dL (3.5-5.0); Alkaline Phosphatase 78 U/L (38-126); Anion Gap 7 mmol/L; Blood Urea Nitrogen 10 mg/dL (7-17); Calcium 9.5 mg/dL (8.4-10.2); Carbon Dioxide 26 mmol/L (22-30); Chloride 104 mmol/L (98-107); Glucose 89 mg/dL (74-99); Lipase 65 U/L (23-300); Non-African American GFR(CKD) >90 (>60 ml/min/1.73 sqM); Potassium 3.9 mmol/L (3.5-5.1); Sodium 137 mmol/L (137-145); Total Bilirubin 0.5 mg/dL (0.2-1.3); Total Protein 7.2 g/dL (6.3-8.2)
--- NOTE | 2020-09-01 11:53 | XR ---
EXAMINATION TYPE: XR chest 2V DATE OF EXAM: 09/01/2020 COMPARISON: 10/31/2018 INDICATION: Epigastric pain TECHNIQUE: Frontal and lateral views of the chest are obtained. FINDINGS: The heart size is normal. The pulmonary vasculature is normal. The lungs are clear. IMPRESSION: 1. No acute pulmonary process.
--- NOTE | 2020-09-01 11:53 | XR ---
EXAMINATION TYPE: XR KUB DATE OF EXAM: 09/01/2020 COMPARISON: 07/01/2015 INDICATION: Epigastric pain TECHNIQUE: Single view abdomen upright view FINDINGS: Normal colonic bowel gas is present. Some nonspecific small bowel gas within the mid abdomen. No free air is evident. No differential air-fluid levels are evident. Psoas margins are normal. No organomegaly is present. IMPRESSION: 1. Unremarkable Abdomen
== END 2020-09-01 12:44 | disposition home or self-care (01) ==
LOC: EC 10:14
DX: R10.13 Epigastric pain (principal); R13.10 Dysphagia, unspecified; F17.200 Nicotine dependence, unspecified, uncomplicated; Z90.49 Acquired absence of other specified parts of digestive tract; F41.9 Anxiety disorder, unspecified; R11.0 Nausea
CPT/HCPCS: 36415; 80053; 83690; 85025; 81001; 81025; 87086; 71046; 74018; 99284; 96374; 96375; 96361; J1885; C9113

== ENCOUNTER 2020-09-16 06:38 | Day surgery (SDC) | payer OTHER ==
[2020-09-10 14:56] VITALS: BMI 30.1
--- NOTE | 2020-09-14 17:07 | P.HPOB ---
History of Present Illness H&P Date: 09/14/20 Chief Complaint: Family planning Ann Marie is a 30-year-old female who is completed her family planning and desires permanent sterilization. Risks/benefits/alternatives to a laparoscopic tubal occlusion with Filshie clips was discussed with patient in detail including but not limited to bleeding and infection, damage to bladder or bowel, vascular degrees, nerve injuries, ureteral injuries, potential need for further surgery. Otherwise she is very healthy otherwise without complaint. Is aware that this is designed to be a permanent procedure and not designed to be reversed. Past Medical History Past Medical History: No Reported History Additional Past Medical History / Comment(s): cardiac ablation 2010, palpitations. History of Any Multi-Drug Resistant Organisms: None Reported Past Surgical History: Cardiac Ablation, Cholecystectomy, Orthopedic Surgery Additional Past Surgical History / Comment(s): Left foot surgery, 2 laproscopic surgeries on ovaries, D&C, IUD placement. Past Anesthesia/Blood Transfusion Reactions: No Reported Reaction Smoking Status: Current every day smoker - Past Family History Mother Family Medical History: Cancer Additional Family Medical History / Comment(s): ovarian Medications and Allergies Home Medications Medication Instructions Recorded Confirmed Type No Known Home Medications 09/01/20 09/10/20 History Allergies Allergy/AdvReac Type Severity Reaction Status Date / Time No Known Allergies Allergy Verified 09/10/20 14:50 Exam Osteopathic Statement: *. No significant issues noted on an osteopathic structural exam other than those noted in the History and Physical/Consult. - OBG Physical Exam Breast: both: normal (no masses) Abdomen: bowel sounds normal, no diffuse tenderness, no bruit present, no guarding noted, no hepatomegaly, no splenomegaly, no mass Vulva: both: normal Vagina: normal moisture, no discharge Cervix: no lesion, no discharge Uterus: normal size, normal contour Adnexa: both: normal Anus/Rectum: normal perianal skin, no rectal mass, no hemorrhoids, heme negative
[~2020-09-16 06:38] MED LIST changes: -DEXAMETHASONE SOD PHOSPHATE 10 MG/ML 1 ML VIAL IV ONE; +DEXAMETHASONE SOD PHOSPHATE 4 MG/ML 1 ML VIAL IV ONE; -HEPARIN SODIUM,PORCINE 5,000 UNIT/ML 1 ML VIAL SQ ONE; -LIDOCAINE 1% 20 ML VIAL (10MG/ML) FOR IV START INTRADERMA PRN; +Pre Op ABX Message 1 EACH MISC MISCELLANE ONE; -SCOPOLAMINE 1.5MG/72HR PATCH TRANSDERM ONE; -ceFAZolin 2 GM in SODIUM CHLORIDE 0.9% 100 ML IVPB ONE
[2020-09-16] MEDS ORDERED: fentaNYL (PF) 50 MCG/ML 2 ML AMP ONE (08:41)
[2020-09-16] MEDS ORDERED: HYDROmorphone (PF) 1 MG/ML ONE (08:41)
[2020-09-16] MEDS ORDERED: PROPOFOL 10 MG/ML 20 ML VIAL IV ONE (08:41)
[2020-09-16] MEDS ORDERED: ePHEDrine SULFATE/0.9% NACL/PF 50 MG/5 ML SYRINGE IV ONE (08:41)
[2020-09-16] MEDS ORDERED: ROCURONIUM 10 MG/ML (5 ML VIAL) IV ONE (08:41)
[2020-09-16] MEDS ORDERED: GLYCOPYRROLATE 0.2 MG/ML 2 ML VIAL ONE (08:41)
[2020-09-16] MEDS ORDERED: MIDAZOLAM 2 MG/2 ML VIAL ONE (08:41)
[2020-09-16] MEDS ORDERED: NEOSTIGMINE 1 MG/ML 10 ML VIAL ONE (08:41)
[2020-09-16] MEDS ORDERED: LIDOCAINE 1% INJ 10MG/ML (20 ML MDV) ONE (08:41)
[2020-09-16] MEDS ORDERED: BUPIVACAINE (PF) 0.25% 30 ML VIAL SQ ONE ×2 (09:09→09:12)
--- NOTE | 2020-09-16 09:28 | P.OP ---
Date of Procedure: 09/16/20 Preoperative Diagnosis: Family planning Postoperative Diagnosis: Same Procedure(s) Performed: Laps up tubal occlusion with Filshie clips Anesthesia: RYLAN Surgeon: Kvng Bansal Estimated Blood Loss (ml): 4 IV fluids (ml): 200 Urine output (ml): 30 Pathology: none sent Condition: stable Disposition: same day Operative Findings: Normal female pelvic anatomy Description of Procedure: Ann Marie was taken to the operating suite where a general anesthetic was found be adequate. She was prepped and draped in the normal sterile fashion and placed in the dorsal lithotomy position. Initially a weighted speculum was inserted into the vagina and the anterior lip of the cervix was identified and grasped with an Allis clamp. Cervix was then sounded to 8 cm and a uterine manipulator was inserted without difficulty. Other instruments were then removed and red rubber catheter was used to drain the bladder of urine. This was also removed. Gloves were then changed and attention was turned to the abdominal portion procedure were 2 mL a course of Marcaine was injected periumbilically. Through this injected anesthetic a 5 mm skin incision was made. Through this incision, with an optical trocar and sleeve, the camera was then inserted. Once peritoneal placement was assured gas was allowed to fully insufflate the abdomen and patient was placed in steep Trendelenburg position. A second 8 mm skin incision was then made in the midline 3 cm above the pubic symphysis and a port and sleeve were inserted again under direct visualization. Observations the pelvis were then noted. Uterus was then elevated and first the right fallopian tube than the left fallopian tube had a Filshie clip applied 2 cm from uterine cornu. No bleeding is noted in the mesosalpinx therefore instruments were then removed and gas was allowed to expel from the abdomen. 5 deep breaths were provided during this process. Once this was completed, 4-0 Vicryl was used to close incision subcuticularly. The remaining 8 mL of quarter percent Marcaine was then injected around these incisions. Uterine manipulator was then removed from the vagina. Sponge, lap, needle counts were all correct 2. Patient was then taken to the recovery room in stable and satisfactory condition. Plan - Discharge Summary Discharge Rx Participant: No New Discharge Prescriptions: New Ibuprofen [Motrin] 600 mg PO Q6HR PRN #30 tab PRN Reason: Pain HYDROcodone/APAP 5-325MG [[place] 5-325] 1 tab PO Q4HR PRN #30 tab PRN Reason: Pain Discharge Medication List HYDROcodone/APAP 5-325MG [[place] 5-325] 1 tab PO Q4HR PRN #30 tab 09/16/20 [Rx] Ibuprofen [Motrin] 600 mg PO Q6HR PRN #30 tab 09/16/20 [Rx] Follow up Appointment(s)/Referral(s): Kvng Bansal DO [Doctor of Osteopathic Medicine] - 2 Weeks Activity/Diet/Wound Care/Special Instructions: No heavy lifting, limit stairs and driving, and pelvic rest. All questions are answered for her prior to her discharge. Call or return for any high temperatures, heavy bleeding, or severe pain Discharge Disposition: HOME SELF-CARE
[2020-09-16 09:30] VITALS: TEMP 98.2
[2020-09-16] MEDS: HYDROmorphone 0.5 MG/0.5 ML SYRINGE IVP PRN ×3 (09:35→10:04)
[2020-09-16] MEDS ORDERED: LACTATED RINGERS 1,000 ML IV ONE ×2 (09:50)
[2020-09-16 10:18] VITALS: RESP 16
[2020-09-16] MEDS ORDERED: ACETAMINOPHEN TAB 500 MG TAB ONE (10:56)
[2020-09-16] MEDS ORDERED: ACETAMINOPHEN TAB 500 MG TAB PO ONE (10:59)
[2020-09-16 11:20] VITALS: BP 118/78; PULSE 53
[2020-09-16] MEDS ORDERED: ONDANSETRON ODT 4 MG TAB PO ONE (11:36)
== END 2020-09-16 11:53 | disposition home or self-care (01) ==
LOC: OR 06:38
PROVIDERS: ATTEND Obstetrics & Gynecology
DX: Z30.2 Encounter for sterilization (principal); F17.210 Nicotine dependence, cigarettes, uncomplicated; F41.9 Anxiety disorder, unspecified; K21.9 Gastro-esophageal reflux disease without esophagitis; Z86.79 Personal history of other diseases of the circulatory system; Z98.890 Other specified postprocedural states; Z90.49 Acquired absence of other specified parts of digestive tract; Z97.2 Presence of dental prosthetic device (complete) (partial); Z80.41 Family history of malignant neoplasm of ovary
CPT/HCPCS: 81025; 58671; J2250; J1100; J2710; J2405; J2001; J3010; J1170 ×2; J2704

== ENCOUNTER 2021-02-05 07:27 | Emergency (ER) | payer OTHER ==
[2021-02-05 07:37] VITALS: BP 104/71; PULSE 84; RESP 20; TEMP 98.1
--- NOTE | 2021-02-05 07:55 | ED ---
General Adult HPI - General Chief complaint: Back Pain/Injury Stated complaint: Back injury, [facility] Time Seen by Provider: 02/05/21 07:30 Source: patient, RN notes reviewed, old records reviewed Mode of arrival: ambulatory Limitations: no limitations - History of Present Illness Initial comments: This is a 30-year-old female who presents emergency Department complaining of right lower back pain. Patient states yesterday at work her parts started to fall when she was holding him and she reached out to try to prevent them from falling and she injured her right lower back per patient states he was feeling a little better last night but when she woke up this morning her right lower back pain was much worse. Patient states bending or twisting hurts it. Patient denies any numbness weakness. Patient denies any central back pain. Patient denies any incontinence problems or retention problems. Patient denies previous back injury. Patient has no other complaints at this time. - Related Data Previous Rx's Medication Instructions Recorded HYDROcodone/APAP 5-325MG [[place] 1 tab PO Q4HR PRN #30 tab 09/16/20 5-325] Ibuprofen [Motrin] 600 mg PO Q6HR PRN #30 tab 09/16/20 Cyclobenzaprine [Flexeril] 10 mg PO TID #20 tab 02/05/21 Ketorolac [Toradol] 10 mg PO Q6HR #15 tab 02/05/21 Allergies Allergy/AdvReac Type Severity Reaction Status Date / Time No Known Allergies Allergy Verified 02/05/21 07:37 Review of Systems ROS Statement: Those systems with pertinent positive or pertinent negative responses have been documented in the HPI. ROS Other: All systems not noted in ROS Statement are negative. Past Medical History Past Medical History: No Reported History Additional Past Medical History / Comment(s): Hx gallstones, palpitations. History of Any Multi-Drug Resistant Organisms: None Reported Past Surgical History: Cardiac Ablation, Cholecystectomy Additional Past Surgical History / Comment(s): Left foot surgery, 2 laproscopic surgeries on ovaries, D&C, Past Anesthesia/Blood Transfusion Reactions: No Reported Reaction Past Psychological History: Anxiety Smoking Status: Current every day smoker Past Alcohol Use History: Occasional Past Drug Use History: None Reported - Past Family History Mother Family Medical History: Cancer Additional Family Medical History / Comment(s): ovarian General Exam - General Exam Comments Initial Comments: GENERAL Patient is well-developed and well-nourished. Patient is in mild distress. EYES Patient's pupils are equal and round. Extraocular motion is intact SKIN Unremarkable NEURO The patient is alert and oriented 3 PYSCH Patient has normal interpersonal interactions. MUSCULOSKELETAL All 4 extremities and full range of motion. Back is tender in the right lower paraspinous muscle regions. There is no spinous process tenderness. Limitations: no limitations Course Vital Signs 02/05/21 07:34 Temperature 98.1 F Pulse Rate 84 Respiratory 20 Rate Blood Pressure 104/71 O2 Sat by Pulse 99 Oximetry Medical Decision Making - Medical Decision Making Patient received Toradol in the emergency department. Disposition Clinical Impression: Strain of lumbar region Disposition: HOME SELF-CARE Condition: Good Instructions (If sedation given, give patient instructions): Acute Low Back Pain (ED), Low Back Strain (ED), Lower Back Exercises (ED) Prescriptions: Cyclobenzaprine [Flexeril] 10 mg PO TID #20 tab Ketorolac [Toradol] 10 mg PO Q6HR #15 tab Is patient prescribed a controlled substance at d/c from ED?: No Referrals: None,Stated [Primary Care Provider] - 1-2 days Time of Disposition: 07:55
[2021-02-05] MEDS: KETOROLAC 15 MG/ML 1 ML VIAL IM STA (07:56)
== END 2021-02-05 08:05 | disposition home or self-care (01) ==
LOC: EC 07:27
DX: S39.012A Strain of muscle, fascia and tendon of lower back, initial encounter (principal); F41.9 Anxiety disorder, unspecified; F17.200 Nicotine dependence, unspecified, uncomplicated; X58.XXXA Exposure to other specified factors, initial encounter; Y99.0 Civilian activity done for income or pay
CPT/HCPCS: 99283; 96372; J1885

== ENCOUNTER 2021-12-19 15:37 | Emergency (ER) | payer OTHER ==
[2021-12-19 16:39] VITALS: BP 110/77; PULSE 95; RESP 18; TEMP 97.8
[2021-12-19 17:51] LABS: Appearance,Urine Clear (Clear); Bilirubin,Urine Negative (Negative); Blood,Urine Negative (Negative); Color,Urine Light Yellow; Glucose,Urine (UA) Negative (Negative); Ketones,Urine Negative (Negative); Leukocyte Esterase,Urine Negative (Negative); Nitrite,Urine Negative (Negative); Protein,Urine Negative (Negative); Specific Gravity,Urine 1.008 (1.001-1.035); Urobilinogen,Urine <2.0 mg/dL (<2.0)
--- NOTE | 2021-12-19 18:10 | ED ---
Female Urogenital HPI - General Chief complaint: Vaginal Bleeding Stated complaint: vaginal bleeding Time Seen by Provider: 12/19/21 17:13 Source: patient Mode of arrival: ambulatory Limitations: no limitations - History of Present Illness Initial comments: Patient is a 31-year-old female who presents to the emergency department for evaluation of vaginal spotting. Patient states she started spotting on 12/16 very lightly which stopped and began again today. Patient states her last menstrual period was December 01. She states her periods have been very regular her entire life and usually last about 5-7 days with moderate to heavy bleeding however patient states during her last menstrual period she only bled for 2 and half days. Patient states she isn't supposed to start her menstrual period until next week. Patient is concerned due to her periods normally being very regular. She does not have any abdominal, pelvic, or vaginal pain. She denies burning with urination, blood in the urine, and vaginal discharge. She is not concerned with sexually transmitted infections. Has history of tubal ligation. Denies history of PCOS and hormone use. Denies fever, chills, shortness of breath, lightheadedness, dizziness, chest pain, and other concerns. - Related Data Home Medications Medication Instructions Recorded Confirmed No Known Home Medications 12/19/21 12/19/21 Allergies Allergy/AdvReac Type Severity Reaction Status Date / Time No Known Allergies Allergy Verified 12/19/21 16:39 Review of Systems ROS Statement: Those systems with pertinent positive or pertinent negative responses have been documented in the HPI. ROS Other: All systems not noted in ROS Statement are negative. Past Medical History Past Medical History: No Reported History Additional Past Medical History / Comment(s): Hx gallstones, palpitations. History of Any Multi-Drug Resistant Organisms: None Reported Past Surgical History: Cardiac Ablation, Cholecystectomy Additional Past Surgical History / Comment(s): Left foot surgery, 2 laproscopic surgeries on ovaries, D&C, Past Anesthesia/Blood Transfusion Reactions: No Reported Reaction Past Psychological History: Anxiety Smoking Status: Current every day smoker Past Alcohol Use History: Occasional Past Drug Use History: None Reported - Past Family History Mother Family Medical History: Cancer Additional Family Medical History / Comment(s): ovarian General Exam Limitations: no limitations General appearance: alert, in no apparent distress Head exam: Present: atraumatic, normocephalic, normal inspection Eye exam: Present: normal appearance, PERRL, EOMI. Absent: scleral icterus, conjunctival injection, periorbital swelling Respiratory exam: Present: normal lung sounds bilaterally. Absent: respiratory distress, wheezes, rales, rhonchi, stridor Cardiovascular Exam: Present: regular rate, normal rhythm, normal heart sounds. Absent: systolic murmur, diastolic murmur, rubs, gallop, clicks GI/Abdominal exam: Present: soft, normal bowel sounds. Absent: distended, tenderness, guarding, rebound, rigid External exam: Present: normal external exam Speculum exam: Present: normal speculum exam. Absent: erythema, vaginal discharge, cervical discharge, vaginal bleeding, foreign body, tissue, laceration By manual exam: Present: normal by manual exam Neurological exam: Present: alert, oriented X3, CN II-XII intact Psychiatric exam: Present: normal affect, normal mood Skin exam: Present: warm, dry, intact, normal color. Absent: rash Course Vital Signs 12/19/21 16:36 Temperature 97.8 F Pulse Rate 95 Respiratory 18 Rate Blood Pressure 110/77 O2 Sat by Pulse 99 Oximetry Medical Decision Making - Medical Decision Making This is a 31-year-old female who presents for evaluation of dysfunctional uterine bleeding. Thorough history and examination were performed. The abdomen is soft and nontender. Speculum exam reveals a normal cervix without vaginal discharge or bleeding. Without pain or significant bleeding, ultrasound is not warranted. Urinalysis was obtained which is unremarkable. is not detected. Results discussed with patient. At this time there are no diagnostic studies to explain patient's symptoms. Patient reassured that there are many factors that can influence vaginal bleeding without pathological etiology. Patient is looking for a new LINOLEUM TILE FLOOR LAYER. I will refer her to Dr. Melendez. She will follow-up with her in 1-2 days. Return parameters discussed. Patient verbalizes understanding and is agreeable to this plan. Dr. Summers is my attending. - Lab Data Lab Results 12/19/21 12/19/21 Range/Units 17:37 17:37 Urine Color Light Yellow Urine Appearance Clear (Clear) Urine pH 6.0 (5.0-8.0) Ur Specific [place] 1.008 (1.001-1.035) Urine Protein Negative (Negative) Urine Glucose (UA) Negative (Negative) Urine Ketones Negative (Negative) Urine Blood Negative (Negative) Urine Nitrite Negative (Negative) Urine Bilirubin Negative (Negative) Urine Urobilinogen <2.0 (<2.0) mg/dL Ur Leukocyte Esterase Negative (Negative) Urine HCG, Qual Not Detected (Not Detectd) Disposition Clinical Impression: Dysfunctional uterine bleeding Disposition: HOME SELF-CARE Condition: Good Instructions (If sedation given, give patient instructions): Abnormal (Dysfunctional) Uterine Bleeding (ED) Additional Instructions: Follow-up with real estate account executive in 1-2 days. Return to the emergency department if you experience new, concerning, or worsening symptoms. Is patient prescribed a controlled substance at d/c from ED?: No Referrals: None,Stated [Primary Care Provider] - 1-2 days Bernadette Watson DO [Doctor of Osteopathic Medicine] - 1-2 days Time of Disposition: 18:10
== END 2021-12-19 18:20 | disposition home or self-care (01) ==
LOC: EC 15:37
DX: N93.8 Other specified abnormal uterine and vaginal bleeding (principal); F17.200 Nicotine dependence, unspecified, uncomplicated
CPT/HCPCS: 81003; 81025; 99284

== ENCOUNTER 2022-06-28 15:51 | Emergency (ER) | payer OTHER ==
[2022-06-28 16:04] VITALS: TEMP 98
[2022-06-28] MEDS ORDERED: KETOROLAC 15 MG/ML 1 ML VIAL IVP STA ×2 (16:24→18:54)
[2022-06-28] MEDS ORDERED: SODIUM CHLORIDE 0.9% 1,000 ML IV ONE (16:25)
[2022-06-28] MEDS ORDERED: ONDANSETRON 4 MG/2 ML VIAL IVP STA (16:27)
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
[2022-06-28 16:52] LABS: Basophils % (A) 0 %; Eosinophils # (A) 0.2 k/uL (0-0.7); Eosinophils % (A) 1 %; HCT 41.7 % (34.0-46.0); HGB 13.7 gm/dL (11.4-16.0); Lymphocytes # (A) 2.5 k/uL (1.0-4.8); Lymphocytes % (A) 15 %; MCH 29.2 pg (25.0-35.0); MCHC 32.7 g/dL (31.0-37.0); MCV 89.3 fL (80.0-100.0); Mean Platelet Volume 7.6; Monocytes # (A) 0.6 k/uL (0-1.0); Monocytes % (A) 4 %; Neutrophils # (A) 13.1 k/uL (1.3-7.7); Neutrophils % (A) 78 %; Platelet Count 282 k/uL (150-450); RBC 4.67 m/uL (3.80-5.40); RDW 13.6 % (11.5-15.5); WBC 16.7 k/uL (3.8-10.6)
[2022-06-28 17:01] LABS: African American GFR (CKD) >90 (>60 ml/min/1.73 sqM); Anion Gap 7 mmol/L; Blood Urea Nitrogen 11 mg/dL (7-17); Calcium 9.9 mg/dL (8.4-10.2); Carbon Dioxide 25 mmol/L (22-30); Chloride 106 mmol/L (98-107); Glucose 95 mg/dL (74-99); Non-African American GFR(CKD) >90 (>60 ml/min/1.73 sqM); Sodium 138 mmol/L (137-145)
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
[2022-06-28] MEDS ORDERED: ONDANSETRON 4 MG ODT STARTER PACK 2 TAB BTL PO STA (18:57)
[2022-06-28 19:21] VITALS: BP 126/68; PULSE 68; RESP 16
== END 2022-06-28 19:20 | disposition home or self-care (01) ==
LOC: EC 15:51
DX: S20.213A Contusion of bilateral front wall of thorax, initial encounter (principal); S50.311A Abrasion of right elbow, initial encounter; M25.511 Pain in right shoulder; F41.9 Anxiety disorder, unspecified; F17.200 Nicotine dependence, unspecified, uncomplicated; V49.40XA Driver injured in collision with unspecified motor vehicles in traffic accident, initial encounter
CPT/HCPCS: 36415; 93005; 80048; 84484; 85025; 73030; 72128; 72125; 72131; 70450; 99285; 96374; 96375; 96376; 96361 ×3; J2405; J1885; S0119

== ENCOUNTER 2023-01-11 10:29 | Emergency (ER) | payer OTHER ==
[2023-01-11 10:54] VITALS: BP 116/75; PULSE 87; RESP 18; TEMP 98.9
[2023-01-11 11:28] LABS: Basophils % (A) 0 %; Eosinophils # (A) 0.3 k/uL (0-0.7); Eosinophils % (A) 3 %; HCT 40.1 % (34.0-46.0); HGB 13.4 gm/dL (11.4-16.0); Lymphocytes # (A) 2.4 k/uL (1.0-4.8); Lymphocytes % (A) 29 %; MCH 29.6 pg (25.0-35.0); MCHC 33.4 g/dL (31.0-37.0); MCV 88.4 fL (80.0-100.0); Monocytes # (A) 0.4 k/uL (0-1.0); Monocytes % (A) 4 %; Neutrophils # (A) 5.1 k/uL (1.3-7.7); Neutrophils % (A) 62 %; Platelet Count 245 k/uL (150-450); RBC 4.54 m/uL (3.80-5.40); RDW 13.7 % (11.5-15.5); WBC 8.2 k/uL (3.8-10.6)
--- NOTE | 2023-01-11 11:31 | ED ---
Chest Pain HPI - General Chief Complaint: Chest Pain Stated Complaint: chest pain Source: patient Mode of arrival: ambulatory - History of Present Illness Initial Comments: 32-year-old woman s/p cardiac ablation approximately 11 years ago presents for chief complaint of chest pain. Patient states over the past 3 days has had intermittent episodes of chest pain and palpitations lasting 5-10 minutes. Car diologist is Dr. Eladio Casey performed, verbally signed Dionicio Greene PA-C - Related Data Previous Rx's Medication Instructions Recorded Ketorolac [Toradol] 10 mg PO Q6HR #28 tab 06/28/22 methocarbamoL [Robaxin] 500 mg PO TID PRN #15 tab 06/28/22 Cyclobenzaprine [Flexeril] 10 mg PO TID #20 tab 07/17/22 Ketorolac [Toradol] 10 mg PO Q6HR #15 tab 07/17/22 Allergies Allergy/AdvReac Type Severity Reaction Status Date / Time No Known Allergies Allergy Verified 02/23/23 23:24 Review of Systems ROS Statement: Those systems with pertinent positive or pertinent negative responses have been documented in the HPI. ROS Other: All systems not noted in ROS Statement are negative. Past Medical History Past Medical History: No Reported History Additional Past Medical History / Comment(s): Hx gallstones, palpitations. History of Any Multi-Drug Resistant Organisms: None Reported Past Surgical History: Cardiac Ablation, Cholecystectomy Additional Past Surgical History / Comment(s): Left foot surgery, 2 laproscopic surgeries on ovaries, D&C, Past Anesthesia/Blood Transfusion Reactions: No Reported Reaction Past Psychological History: Anxiety Smoking Status: Current every day smoker Past Alcohol Use History: Occasional Past Drug Use History: None Reported - Past Family History Mother Family Medical History: Cancer Additional Family Medical History / Comment(s): ovarian General Exam Limitations: no limitations General appearance: alert, in no apparent distress Neck exam: Present: normal inspection Cardiovascular Exam: Present: regular rate Extremities exam: Present: normal inspection Back exam: Present: normal inspection Neurological exam: Present: alert Course Vital Signs 01/11/23 10:49 Temperature 98.9 F Pulse Rate 87 Respiratory 18 Rate Blood Pressure 116/75 O2 Sat by Pulse 98 Oximetry Disposition Clinical Impression: Chest pain Disposition: LEFT AGAINST MEDICAL ADVICE Referrals: Reji Milton MD [Primary Care Provider] - 1-2 days
[2023-01-11 11:47] LABS: ALT 26 U/L (4-34); AST 21 U/L (14-36); African American GFR (CKD) >90 (>60 ml/min/1.73 sqM); Albumin 4.2 g/dL (3.5-5.0); Alkaline Phosphatase 67 U/L (38-126); Anion Gap 8 mmol/L; Blood Urea Nitrogen 6 mg/dL (7-17); Calcium 9.2 mg/dL (8.4-10.2); Carbon Dioxide 26 mmol/L (22-30); Chloride 106 mmol/L (98-107); Glucose 90 mg/dL (74-99); Non-African American GFR(CKD) >90 (>60 ml/min/1.73 sqM); Potassium 4.4 mmol/L (3.5-5.1); Sodium 140 mmol/L (137-145); Total Bilirubin 0.4 mg/dL (0.2-1.3); Total Protein 7.3 g/dL (6.3-8.2)
== END 2023-01-11 13:38 | disposition left against medical advice (07) ==
LOC: EC 10:29
DX: R07.89 Other chest pain (principal); F17.200 Nicotine dependence, unspecified, uncomplicated; Z86.59 Personal history of other mental and behavioral disorders; Z90.49 Acquired absence of other specified parts of digestive tract; Z53.29 Procedure and treatment not carried out because of patient's decision for other reasons
CPT/HCPCS: 36415; 80053; 84484; 85025; 93005; 99284

== ENCOUNTER 2023-02-23 23:19 | Emergency (ER) | payer OTHER ==
[2023-02-23] MEDS ORDERED: SODIUM CHLORIDE 0.9% 1,000 ML IV STA (23:36)
[2023-02-24 00:12] LABS: Basophils % (A) 0 %; Eosinophils # (A) 0.2 k/uL (0-0.7); Eosinophils % (A) 2 %; HCT 39.1 % (34.0-46.0); Lymphocytes # (A) 2.9 k/uL (1.0-4.8); Lymphocytes % (A) 33 %; MCH 29.4 pg (25.0-35.0); MCHC 33.3 g/dL (31.0-37.0); MCV 88.3 fL (80.0-100.0); Mean Platelet Volume 7.7; Monocytes # (A) 0.4 k/uL (0-1.0); Monocytes % (A) 5 %; Neutrophils # (A) 5.2 k/uL (1.3-7.7); Neutrophils % (A) 59 %; Platelet Count 317 k/uL (150-450); RBC 4.42 m/uL (3.80-5.40); RDW 13.3 % (11.5-15.5); WBC 8.8 k/uL (3.8-10.6)
[2023-02-24 00:16] LABS: Appearance,Urine Clear (Clear); Bilirubin,Urine Negative (Negative); Blood,Urine Negative (Negative); Color,Urine Colorless; Glucose,Urine (UA) Negative (Negative); Ketones,Urine Negative (Negative); Leukocyte Esterase,Urine Negative (Negative); Nitrite,Urine Negative (Negative); PH, Urine 6.5 (5.0-8.0); Protein,Urine Negative (Negative); Specific Gravity,Urine 1.004 (1.001-1.035); Urobilinogen,Urine <2.0 mg/dL (<2.0)
[2023-02-24 00:25] LABS: INR 0.9 (<1.2); Partial Thromboplastin Time 25.7 sec (22.0-30.0)
[2023-02-24 00:28] LABS: Cocaine Screen,Urine Not Detected (NotDetected); Opiate Screen,Urine Not Detected (NotDetected); Phencyclidine Screen,Urine Not Detected (NotDetected)
[2023-02-24 00:29] LABS: ALT 17 U/L (4-34); AST 18 U/L (14-36); African American GFR (CKD) >90 (>60 ml/min/1.73 sqM); Albumin 4.1 g/dL (3.5-5.0); Alkaline Phosphatase 77 U/L (38-126); Anion Gap 8 mmol/L; Blood Urea Nitrogen 10 mg/dL (7-17); Calcium 9.5 mg/dL (8.4-10.2); Carbon Dioxide 25 mmol/L (22-30); Chloride 106 mmol/L (98-107); Glucose 107 mg/dL (74-99); Magnesium 2.1 mg/dL (1.6-2.3); Non-African American GFR(CKD) >90 (>60 ml/min/1.73 sqM); Potassium 3.9 mmol/L (3.5-5.1); Sodium 139 mmol/L (137-145); Total Bilirubin 0.3 mg/dL (0.2-1.3); Total Protein 7.3 g/dL (6.3-8.2)
[2023-02-24 00:29] LABS: Amphetamine Screen,Urine Not Detected (NotDetected); Barbiturate Screen,Urine Not Detected (NotDetected); Benzodiazepines Screen,Urine Not Detected (NotDetected); Methadone Screen, Urine Not Detected (NotDetected); Oxycodone Screen, Urine Not Detected (NotDetected); Tricyclic Antidepressant,Urine Not Detected (NotDetected); Urn Cannabinoid Scrn Not Detected (NotDetected)
--- NOTE | 2023-02-24 01:41 | ED ---
Arrhythmia/Palpitations HPI - General Chief Complaint: Arrhythmia/Palpitations Stated Complaint: heart palpitations Time Seen by Provider: 02/23/23 23:28 Source: patient Mode of arrival: ambulatory Limitations: no limitations - History of Present Illness Initial Comments: 32-year-old female presenting with chief complaint of palpitations. Palpitations have been intermittent over the last 2 days. Patient has history of palpitations and had an ablation several years ago. She states that after her ablation the palpitations reduced significantly, returning 2 days ago. She states that when she has palpitations she does admit to some chest pain and s hortness of breath. Nausea with no vomiting. No abdominal pain. No cough or URI like symptoms. No fevers or chills. - Related Data Previous Rx's Medication Instructions Recorded Ketorolac [Toradol] 10 mg PO Q6HR #28 tab 06/28/22 methocarbamoL [Robaxin] 500 mg PO TID PRN #15 tab 06/28/22 Cyclobenzaprine [Flexeril] 10 mg PO TID #20 tab 07/17/22 Ketorolac [Toradol] 10 mg PO Q6HR #15 tab 07/17/22 Allergies Allergy/AdvReac Type Severity Reaction Status Date / Time No Known Allergies Allergy Verified 02/23/23 23:24 Review of Systems ROS Statement: Those systems with pertinent positive or pertinent negative responses have been documented in the HPI. ROS Other: All systems not noted in ROS Statement are negative. Past Medical History Past Medical History: No Reported History Additional Past Medical History / Comment(s): Hx gallstones, palpitations. History of Any Multi-Drug Resistant Organisms: None Reported Past Surgical History: Cardiac Ablation, Cholecystectomy Additional Past Surgical History / Comment(s): Left foot surgery, 2 laproscopic surgeries on ovaries, D&C, Past Anesthesia/Blood Transfusion Reactions: No Reported Reaction Past Psychological History: Anxiety Smoking Status: Current every day smoker Past Alcohol Use History: Occasional Past Drug Use History: None Reported - Past Family History Mother Family Medical History: Cancer Additional Family Medical History / Comment(s): ovarian General Exam Limitations: no limitations General appearance: alert, in no apparent distress Head exam: Present: atraumatic, normocephalic, normal inspection Eye exam: Present: normal appearance, EOMI Neck exam: Present: normal inspection, full ROM Respiratory exam: Present: normal lung sounds bilaterally. Absent: respiratory distress, wheezes, rales, rhonchi, stridor Cardiovascular Exam: Present: regular rate, normal rhythm, normal heart sounds. Absent: systolic murmur, diastolic murmur, rubs, gallop, clicks Neurological exam: Present: alert, oriented X3, CN II-XII intact Psychiatric exam: Present: normal affect, normal mood Skin exam: Present: warm, dry, intact, normal color. Absent: rash Course Vital Signs 02/23/23 02/24/23 23:21 02:23 Temperature 98.0 F 98.4 F Pulse Rate 90 80 Respiratory 20 16 Rate Blood Pressure 110/76 112/61 O2 Sat by Pulse 100 97 Oximetry EKG Findings - EKG Comments: EKG Findings:: Sinus rhythm ventricular rate 70-year-old 44. QRS 99. QT 368. QTC 401. Normal axis. No ischemic changes. Medical Decision Making - Medical Decision Making Was pt. sent in by a medical professional or institution (, PA, SQUADRON WORKER, urgent care, hospital, or care home...) When possible be specific @ -No Did you speak to anyone other than the patient for history (EMS, parent, family, police, friend...)? What history was obtained from this source @ -No Did you review nursing and triage notes (agree or disagree)? Why? @ -I reviewed and agree with nursing and triage notes Were old charts reviewed (outside hosp., previous admission, EMS record, old EKG, old radiological studies, urgent care reports/EKG's, care home records)? Report findings @ -No old charts were reviewed Differential Diagnosis (chest pain, altered mental status, abdominal pain women, abdominal pain men, vaginal bleeding, weakness, fever, dyspnea, syncope, headache, dizziness, GI bleed, back pain, seizure, CVA, palpatations, mental health, musculoskeletal)? @ -Differential Palpitations Ventricular arrhythmias, atrial arrhythmias, myocardial infarction, anemia, thyrotoxicosis, electrolyte imbalance, hypokalemia, pulmonary embolism, pulmon yared disease, drugs, alcohol, anxiety, stress.... This is not meant to be an all-inclusive list. EKG interpreted by me (3pts min.). @ -As above X-rays interpreted by me (1pt min.). @ -chest x-ray shows no acute process CT interpreted by me (1pt min.). @ -None done U/S interpreted by me (1pt. min.). @ -None done What testing was considered but not performed or refused? (CT, X-rays, U/S, labs)? Why? @ -None What meds were considered but not given or refused? Why? @ -None Did you discuss the management of the patient with other professionals (spenser piedra i.e. , PA, SQUADRON WORKER, lab, RT, psych nurse, social media job titles, operations plant attendant, teacher, combatant diver officer, bottle caser)? Give summary @ -No Was smoking cessation discussed for >3mins.? @ -No Was critical care preformed (if so, how long)? @ -No Were there social determinants of health that impacted care today? How? (Homelessness, low income, unemployed, alcoholism, drug addiction, transportation, low edu. Level, literacy, decrease access to med. care, prison, rehab)? @ -No Was there de-escalation of care discussed even if they declined (Discuss DNR or withdrawal of care, Hospice)? DNR status @ -No What co-morbidities impacted this encounter? (DM, HTN, Smoking, COPD, CAD, Cancer, CVA, ARF, Chemo, Hep., AIDS, mental health diagnosis, sleep apnea, morbid obesity)? @ -None Was patient admitted / discharged? Hospital course, mention meds given and route, prescriptions, significant lab abnormalities, going to OR and other pertinent info. @ -32-year-old female presenting with chief complaint of palpitations. History of ablation. Physical examination is conducted. Lab work is grossly negative. EKG shows sinus rhythm and chest x-ray shows no acute process. She'll be discharged home in stable condition and instructed to follow-up with her senior librarian. Follow-up with PCP. Report back to ER with any new or worsening symptoms. Discussed return parameters and answered all questions. Patient conveyed verbal understanding and agreed to the plan. I discussed this case in detail with my attending Dr. Ibrahim Undiagnosed new problem with uncertain prognosis? @ -No Drug Therapy requiring intensive monitoring for toxicity (Heparin, Nitro, Insulin, Cardizem)? @ -No Were any procedures done? @ -No Diagnosis/symptom? @ -Palpitations Acute, or Chronic, or Acute on Chronic? @ -acute Uncomplicated (without systemic symptoms) or Complicated (systemic symptoms)? @ -Uncomplicated Side effects of treatment? @ -No Exacerbation, Progression, or Severe Exacerbation? @ -No Poses a threat to life or bodily function? How? (Chest pain, USA, OR, pneumonia, PE, COPD, DKA, ARF, appy, cholecystitis, CVA, Diverticulitis, Homicidal, Suicidal, threat to staff... and all critical care pts) @ -No - Lab Data Result diagrams: 02/24/23 00:03 02/24/23 00:03 Lab Results 02/23/23 02/23/23 02/24/23 Range/Units 23:58 23:58 00:03 WBC 8.8 (3.8-10.6) k/uL RBC 4.42 (3.80-5.40) m/uL Hgb 13.0 (11.4-16.0) gm/dL Hct 39.1 (34.0-46.0) % MCV 88.3 (80.0-100.0) fL MCH 29.4 (25.0-35.0) pg MCHC 33.3 (31.0-37.0) g/dL RDW 13.3 (11.5-15.5) % Plt Count 317 (150-450) k/uL MPV 7.7 Neutrophils % 59 % Lymphocytes % 33 % Monocytes % 5 % Eosinophils % 2 % Basophils % 0 % Neutrophils # 5.2 (1.3-7.7) k/uL Lymphocytes # 2.9 (1.0-4.8) k/uL Monocytes # 0.4 (0-1.0) k/uL Eosinophils # 0.2 (0-0.7) k/uL Basophils # 0.0 (0-0.2) k/uL PT (9.0-12.0) sec INR (<1.2) APTT (22.0-30.0) sec Sodium (137-145) mmol/L Potassium (3.5-5.1) mmol/L Chloride (98-107) mmol/L Carbon Dioxide (22-30) mmol/L Anion Gap mmol/L BUN (7-17) mg/dL Creatinine (0.52-1.04) mg/dL Est GFR (CKD-EPI)AfAm (>60 ml/min/1.73 sqM) Est GFR (CKD-EPI)NonAf (>60 ml/min/1.73 sqM) Glucose (74-99) mg/dL Calcium (8.4-10.2) mg/dL Magnesium (1.6-2.3) mg/dL Total Bilirubin (0.2-1.3) mg/dL AST (14-36) U/L ALT (4-34) U/L Alkaline Phosphatase (38-126) U/L Troponin I (0.000-0.034) ng/mL Total Protein (6.3-8.2) g/dL Albumin (3.5-5.0) g/dL TSH (0.465-4.680) mIU/L Urine Color Colorless Urine Appearance Clear (Clear) Urine pH 6.5 (5.0-8.0) Ur Specific [place] 1.004 (1.001-1.035) Urine Protein Negative (Negative) Urine Glucose (UA) Negative (Negative) Urine Ketones Negative (Negative) Urine Blood Negative (Negative) Urine Nitrite Negative (Negative) Urine Bilirubin Negative (Negative) Urine Urobilinogen <2.0 (<2.0) mg/dL Ur Leukocyte Esterase Negative (Negative) Urine HCG, Qual Not Detected (Not Detectd) Urine Opiates Screen Not Detected (NotDetected) Ur Oxycodone Screen Not Detected (NotDetected) Urine Methadone Screen Not Detected (NotDetected) Ur Propoxyphene Screen Not Detected (NotDetected) Ur Barbiturates Screen Not Detected (NotDetected) U Tricyclic Antidepress Not Detected (NotDetected) Ur Phencyclidine Scrn Not Detected (NotDetected) Ur Amphetamines Screen Not Detected (NotDetected) U Methamphetamines Scrn Not Detected (NotDetected) U Benzodiazepines Scrn Not Detected (NotDetected) Urine Cocaine Screen Not Detected (NotDetected) U Marijuana (THC) Screen Not Detected (NotDetected) 02/24/23 02/24/23 02/24/23 Range/Units 00:03 00:03 00:03 WBC (3.8-10.6) k/uL RBC (3.80-5.40) m/uL Hgb (11.4-16.0) gm/dL Hct (34.0-46.0) % MCV (80.0-100.0) fL MCH (25.0-35.0) pg MCHC (31.0-37.0) g/dL RDW (11.5-15.5) % Plt Count (150-450) k/uL MPV Neutrophils % % Lymphocytes % % Monocytes % % Eosinophils % % Basophils % % Neutrophils # (1.3-7.7) k/uL Lymphocytes # (1.0-4.8) k/uL Monocytes # (0-1.0) k/uL Eosinophils # (0-0.7) k/uL Basophils # (0-0.2) k/uL PT 10.0 (9.0-12.0) sec INR 0.9 (<1.2) APTT 25.7 (22.0-30.0) sec Sodium 139 (137-145) mmol/L Potassium 3.9 (3.5-5.1) mmol/L Chloride 106 (98-107) mmol/L Carbon Dioxide 25 (22-30) mmol/L Anion Gap 8 mmol/L BUN 10 (7-17) mg/dL Creatinine 0.72 (0.52-1.04) mg/dL Est GFR (CKD-EPI)AfAm >90 (>60 ml/min/1.73 sqM) Est GFR (CKD-EPI)NonAf >90 (>60 ml/min/1.73 sqM) Glucose 107 H (74-99) mg/dL Calcium 9.5 (8.4-10.2) mg/dL Magnesium 2.1 (1.6-2.3) mg/dL Total Bilirubin 0.3 (0.2-1.3) mg/dL AST 18 (14-36) U/L ALT 17 (4-34) U/L Alkaline Phosphatase 77 (38-126) U/L Troponin I <0.012 (0.000-0.034) ng/mL Total Protein 7.3 (6.3-8.2) g/dL Albumin 4.1 (3.5-5.0) g/dL TSH 2.530 (0.465-4.680) mIU/L Urine Color Urine Appearance (Clear) Urine pH (5.0-8.0) Ur Specific [place] (1.001-1.035) Urine Protein (Negative) Urine Glucose (UA) (Negative) Urine Ketones (Negative) Urine Blood (Negative) Urine Nitrite (Negative) Urine Bilirubin (Negative) Urine Urobilinogen (<2.0) mg/dL Ur Leukocyte Esterase (Negative) Urine HCG, Qual (Not Detectd) Urine Opiates Screen (NotDetected) Ur Oxycodone Screen (NotDetected) Urine Methadone Screen (NotDetected) Ur Propoxyphene Screen (NotDetected) Ur Barbiturates Screen (NotDetected) U Tricyclic Antidepress (NotDetected) Ur Phencyclidine Scrn (NotDetected) Ur Amphetamines Screen (NotDetected) U Methamphetamines Scrn (NotDetected) U Benzodiazepines Scrn (NotDetected) Urine Cocaine Screen (NotDetected) U Marijuana (THC) Screen (NotDetected) Disposition Clinical Impression: Palpitations Disposition: HOME SELF-CARE Condition: Good Instructions (If sedation given, give patient instructions): Heart Palpitations (ED) Additional Instructions: Follow-up with cardiology. Report back to ER with any new or worsening symptoms. Is patient prescribed a controlled substance at d/c from ED?: No Referrals: Reji Milton MD [Primary Care Provider] - 1-2 days Grupo Hendricks MD [STAFF PHYSICIAN] - 1-2 days Time of Disposition: 02:11
--- NOTE | 2023-02-24 02:16 | XR ---
EXAM: XR Chest, 2 Views CLINICAL HISTORY: ITS.REASON XR Reason: dysrhythmia TECHNIQUE: Frontal and lateral views of the chest. COMPARISON: No relevant prior studies available. FINDINGS: Lungs: No consolidation or mass. Pleural space: No effusion. Heart: No cardiomegaly. Bones/joints: No acute findings. IMPRESSION: No acute cardiopulmonary process.
[2023-02-24 02:25] VITALS: BP 112/61; PULSE 80; RESP 16; TEMP 98.4
== END 2023-02-24 02:30 | disposition home or self-care (01) ==
LOC: EC 23:19
DX: R00.2 Palpitations (principal); F17.200 Nicotine dependence, unspecified, uncomplicated; Z86.59 Personal history of other mental and behavioral disorders
CPT/HCPCS: 36415; 71046; 80053; 80306; 81003; 81025; 83735; 84443; 84484; 85025; 85610; 85730; 93005; 96360; 96361; 99285

== ENCOUNTER → 2023-03-19 | Outpatient (CLI) | payer OTHER ==
--- NOTE | 2023-03-19 11:01 | FL ---
EXAMINATION TYPE: FL UGI air w esophagus DATE OF EXAM: 03/19/2023 10:55 AM CLINICAL INDICATION:Female, 32 years old with history of [id number] ESOPHAGEAL DYSPHAGIA; COMPARISON: 02/24/2023, CT 06/28/2022. TECHNIQUE: The procedure was explained and patient history elicited. All patient questions were ans wered prior to start of procedure. A academic department chair radiograph of the abdomen was also reviewed. Multiple flu oroscopic spot images of the esophagus, stomach and duodenum were obtained following ingestion of liq uid barium and EZ-gas crystals. Fluoroscopic time: 2 minutes 29 seconds min Fluoroscopic images: 0 Radiographs taken: 61 DAP: [id number] FINDINGS: Upper GI examination: The academic department chair abdominal radiograph demonstrates a normal bowel gas pattern without dilated loops of small or large bowel. There is no evidence for organomegaly or pneumoperitoneum. No abnormal calcificat ions. The visualized osseous structures are intact. The esophagus appears unremarkable without evidence of focal stricture, ulceration or abnormal outpou jannette. No hiatal hernia was visualized. No evidence of gastroesophageal reflux was identified. The stomach and duodenum demonstrate a normal course and contour. There is no evidence of focal gastric or duodenal ulceration, stricture, or abnormal outpouching. IMPRESSION: Normal upper gastrointestinal examination.
== END | disposition home or self-care (01) ==
LOC: RADUSWWP 09:42
PROVIDERS: ATTEND Family Medicine
DX: K21.9 Gastro-esophageal reflux disease without esophagitis (principal); R13.19 Other dysphagia; R00.2 Palpitations
CPT/HCPCS: 74246

== ENCOUNTER → 2023-09-13 | Outpatient (CLI) | payer OTHER ==
[2023-09-13 14:52] LABS: Basophils # (A) 0.05 X 10*3/uL (0.00-0.10); Basophils % (A) 0.9 %; Eosinophils # (A) 0.09 X 10*3/uL (0.04-0.35); Eosinophils % (A) 1.5 %; HCT 43.8 % (37.2-46.3); HGB 13.6 g/dL (12.0-15.0); Lymphocytes % (A) 32.5 %; MCH 27.5 pg (27.0-32.0); MCHC 31.1 g/dL (32.0-37.0); MCV 88.5 FL (80.0-97.0); Mean Platelet Volume 10.2 FL (9.5-12.2); Monocytes # (A) 0.65 X 10*3/uL (0.20-1.00); Monocytes % (A) 11.1 %; NRBC Per 100 WBC 0 X 10*3/uL (0.00-0.01); Neutrophils # (A) 3.15 X 10*3/uL (1.80-7.70); Neutrophils % (A) 53.8 %; Platelet Count 337 X 10*3/uL (140-440); RBC 4.95 X 10*6/uL (4.10-5.20); RDW 14.2 % (11.5-14.5); WBC 5.85 X 10*3/uL (4.50-10.00)
[2023-09-13 16:03] LABS: Blood Urea Nitrogen 6.7 mg/dL (9.0-27.0); Carbon Dioxide 27.5 mmol/L (21.6-31.8); Chloride 106 mmol/L (96-109); Glucose 74 mg/dL (70-110); Potassium 4.8 mmol/L (3.5-5.5); Sodium 142 mmol/L (135-145)
== END | disposition home or self-care (01) ==
LOC: LABPAT 10:29
PROVIDERS: ATTEND Obstetrics & Gynecology
DX: Z01.812 Encounter for preprocedural laboratory examination (principal); N93.8 Other specified abnormal uterine and vaginal bleeding; N94.6 Dysmenorrhea, unspecified
CPT/HCPCS: 36415; 80051; 82565; 82947; 84520; 85025; 86850; 86900; 86901; 87086

== ENCOUNTER 2023-09-17 06:00 | Day surgery (SDC) | payer OTHER ==
--- NOTE | 2023-07-05 15:42 | P.HPIHPCON ---
History of Present Illness H&P Date: 07/05/23 Chief Complaint: Abnormal Uterine Bleeding, Dysmenorrhea Ms. Lynn is a 32 year old female presenting for surgical management of AUB and dysmenorrhea. The patient is s/p an endometrial biopsy which was negative for malignancy. She also recently completed Definition 6 testing for a strong family history of various cancers at early ages and this results was negative for any clinically significant mutations. The patient has been counseled on all possible treatments for AUB and is interested in pursuing hysterectomy at this time. She has tried IUDs twice and had an expulsion once which was traumatic for her. She has tried Depo-Provera which made her gain weight. She is currently on continuous OCPs to bridge her through to surgery but she is having the same amount of bleeding and increased cramping, so she is dissatisfied with these. Consent for Procedure: I have explained the operation/procedure to the patient, including the risks, benefits, side effects, alternative therapies (including not receiving the proposed treatment or service), the likelihood of the patient achieving his/her goals, and potential recuperation problems for the procedure/sedation/analgesia, as well as any blood products, if indicated. I also explained to the patient the risks, benefits and side effects of the alternatives, as well as the risks related to not receiving the proposed procedure, care, treatment, or services. Past Medical History Past Medical History: No Reported History Additional Past Medical History / Comment(s): Hx gallstones, palpitations. History of Any Multi-Drug Resistant Organisms: None Reported Past Surgical History: Cardiac Ablation, Cholecystectomy Additional Past Surgical History / Comment(s): Left foot surgery, 2 laproscopic surgeries on ovaries, D&C, Past Anesthesia/Blood Transfusion Reactions: No Reported Reaction Past Psychological History: Anxiety Smoking Status: Current every day smoker Past Alcohol Use History: Occasional Past Drug Use History: None Reported - Past Family History Mother Family Medical History: Cancer Additional Family Medical History / Comment(s): ovarian Medications and Allergies Home Medications Medication Instructions Recorded Confirmed Type Ketorolac [Toradol] 10 mg PO Q6HR #28 tab 06/28/22 Rx methocarbamoL [Robaxin] 500 mg PO TID PRN #15 tab 06/28/22 Rx Cyclobenzaprine [Flexeril] 10 mg PO TID #20 tab 07/17/22 Rx Ketorolac [Toradol] 10 mg PO Q6HR #15 tab 07/17/22 Rx Allergies Allergy/AdvReac Type Severity Reaction Status Date / Time No Known Allergies Allergy Verified 02/23/23 23:24 Surgical - Exam The patient is a healthy-appearing female in no apparent distress. Breathing is non-labored, the patient is conversational. Abdomen is soft and non-tender. Extremities are non-edematous and non-tender. Assessment and Plan Assessment: 32 year old presenting for surgical management of AUB and dysmenorrhea Plan: Risks, benefits, and alternatives to Robotic Assisted Total Laparoscopic Hysterectomy, Bilateral Salpingectomy, and Cystoscopy; Possible ASHISH; Possible Bilateral Oophorectomy were discussed with the patient including risk of bleeding, infection, damage to surrounding structures including bladder/bowel/ureters/ovaries, and post-operative VTE. All questions answered. Patient would like to proceed with surgery as discussed. Time with Patient: Less than 30
--- NOTE | 2023-09-13 17:42 | P.HPIHPCON ---
History of Present Illness H&P Date: 09/13/23 Chief Complaint: Abnormal uterine bleeding, dysmenorrhea Ms. Lynn is a 33 year old female presenting for surgical management of AUB and dysmenorrhea. The patient is s/p an endometrial biopsy which was negative for malignancy. She also recently completed [place] testing for a strong family history of various cancers at early ages and this results was negative for any clinically significant mutations. The patient has been counseled on all possible treatments for AUB and is interested in pursuing hysterectomy at this time. She has tried IUDs twice and had an expulsion once which was traumatic for her. She has tried Depo-Provera which made her gain weight. She is currently on continuous OCPs to bridge her through to surgery but she is having the same amount of bleeding and increased cramping, so she is dissatisfied with these. Consent for Procedure: I have explained the operation/procedure to the patient, including the risks, benefits, side effects, alternative therapies (including not receiving the proposed treatment or service), the likelihood of the patient achieving his/her goals, and potential recuperation problems for the procedure/sedation/analgesia, as well as any blood products, if indicated. I also explained to the patient the risks, benefits and side effects of the alternatives, as well as the risks related to not receiving the proposed procedure, care, treatment, or services. Past Medical History Past Medical History: No Reported History Additional Past Medical History / Comment(s): Hx gallstones, palpitations. History of Any Multi-Drug Resistant Organisms: None Reported Past Surgical History: Cardiac Ablation, Cholecystectomy Additional Past Surgical History / Comment(s): Left foot surgery, 2 laproscopic surgeries on ovaries, D&C, Past Anesthesia/Blood Transfusion Reactions: No Reported Reaction Past Psychological History: Anxiety Smoking Status: Current every day smoker Past Alcohol Use History: Occasional Past Drug Use History: None Reported - Past Family History Mother Family Medical History: Cancer Additional Family Medical History / Comment(s): ovarian Medications and Allergies Home Medications Medication Instructions Recorded Confirmed Type Ketorolac [Toradol] 10 mg PO Q6HR #28 tab 06/28/22 Rx methocarbamoL [Robaxin] 500 mg PO TID PRN #15 tab 06/28/22 Rx Cyclobenzaprine [Flexeril] 10 mg PO TID #20 tab 07/17/22 Rx Ketorolac [Toradol] 10 mg PO Q6HR #15 tab 07/17/22 Rx Allergies Allergy/AdvReac Type Severity Reaction Status Date / Time No Known Allergies Allergy Verified 02/23/23 23:24 Surgical - Exam The patient is a healthy-appearing female in no apparent distress. Breathing is non-labored, the patient is conversational. Abdomen is soft and non-tender. Extremities are non-edematous and non-tender. Assessment and Plan Assessment: 33 year old presenting for surgical management of AUB and dysmenorrhea Plan: Risks, benefits, and alternatives to Robotic Assisted Total Laparoscopic Hysterectomy, Bilateral Salpingectomy, and Cystoscopy; Possible ASHISH; Possible Bilateral Oophorectomy were discussed with the patient including risk of bleeding, infection, damage to surrounding structures including bladder/bowel/ureters/ovaries, and post-operative VTE. All questions answered. Patient would like to proceed with surgery as discussed.
[2023-09-14 10:04] VITALS: BMI 30.9
[2023-09-17] MEDS: FAMOTIDINE 20 MG/2 ML VIAL IVP ONE (06:58)
[2023-09-17] MEDS: MIDAZOLAM 2 MG/2 ML VIAL IVP ONE (06:58)
[2023-09-17] MEDS ORDERED: MIDAZOLAM 2 MG/2 ML VIAL IV PRN (07:00)
[2023-09-17] MEDS ORDERED: HYDROmorphone 0.5 MG/0.5 ML SYRINGE IVP PRN (07:00)
[2023-09-17] MEDS: LACTATED RINGERS 1,000 ML IV SCH (07:02)
[2023-09-17] MEDS: ONDANSETRON 4 MG/2 ML VIAL IVP ONE ×2 (07:02→09:28)
[2023-09-17] MEDS: SCOPOLAMINE 1 MG/72 HR PATCH TRANSDERM ONE (07:02)
[2023-09-17] MEDS: DEXAMETHASONE SOD PHOSPHATE 4 MG/ML 1 ML VIAL IV ONE (07:02)
[2023-09-17] MEDS ORDERED: SUCCINYLCHOLINE CHLORIDE 200 MG/10 ML VIAL IV ONE (07:35)
[2023-09-17] MEDS ORDERED: LIDOCAINE 1% INJ 10MG/ML (20 ML MDV) ONE (07:35)
[2023-09-17] MEDS ORDERED: fentaNYL (PF) 50 MCG/ML 2 ML AMP ONE (07:35)
[2023-09-17] MEDS ORDERED: LIDOCAINE 4% LTA KIT (4 ML) TOPICAL ONE (07:35)
[2023-09-17] MEDS ORDERED: PROPOFOL 10 MG/ML 20 ML VIAL IV ONE (07:35)
[2023-09-17] MEDS ORDERED: NEOSTIGMINE 1 MG/ML 10 ML VIAL ONE (07:35)
[2023-09-17] MEDS ORDERED: ROCURONIUM 10 MG/ML (5 ML VIAL) IV ONE (07:35)
[2023-09-17] MEDS ORDERED: KETOROLAC 15 MG/ML 1 ML VIAL ONE (07:35)
[2023-09-17] MEDS ORDERED: GLYCOPYRROLATE 0.2 MG/ML 2 ML VIAL ONE (07:35)
[2023-09-17] MEDS ORDERED: ACETAMINOPHEN IV (For NPO) 1,000 MG/100 ML VIAL ONE (07:35)
[2023-09-17] MEDS ORDERED: MIDAZOLAM 2 MG/2 ML VIAL ONE (07:35)
[2023-09-17] MEDS: BUPIVACAINE (PF) 0.25% 30 ML VIAL SQ ONE ×2 (08:19→08:59)
[2023-09-17] MEDS ORDERED: SIMETHICONE 80 MG CHEWABLE PO PRN (09:00)
[2023-09-17] MEDS ORDERED: IBUPROFEN 600 MG TAB PO PRN (09:00)
--- NOTE | 2023-09-17 09:00 | P.OP ---
Date of Procedure: 09/17/23 Preoperative Diagnosis: 1. Abnormal Uterine Bleeding 2. Dysmenorrhea Postoperative Diagnosis: Same Procedure(s) Performed: Robotic Assisted Total Laparoscopic Hysterectomy, Bilateral Salpingectomy, Cystoscopy Implants: None Anesthesia: RYLAN Surgeon: Evelyn Maier Loan Clerk #1: Rody Maria Estimated Blood Loss (ml): 50 IV fluids (ml): 800 Urine output (ml): 100 (clear yellow) Pathology: other (uterus, cervix, bilateral fallopian tubes) Condition: stable Disposition: floor Indications for Procedure: Ms. Lynn is a with AUB and dysmenorrhea that has failed several hormonal contraceptive options including IUD and depo-provera. She desires definitive management with hysterectomy. Risks, benefits, and alternatives to Robotic Assisted Total Laparoscopic Hysterectomy, Bilateral Salpingetomy, and Cystoscopy are discussed with the patient including risk of bleeding, infection, damage to surrounding structures including bladder/bowel/ureters, and post-operative VTE are discussed with the patient. The patient understands these risks and desire to proceed. All questions answered. Operative Findings: Grossly unremarkable uterus and bilateral ovaries. Bilateral fallopian tubes with filshie clips present. Normal appearing pelvis and abdomen otherwise. Description of Procedure: Prior to the beginning of the procedure, the team paused to verify the patients identity, the procedure to be performed (in accordance with the consent,) and the correct side/site. The patient was positioned appropriately. All relevant images and results were properly labeled and displayed. We addressed antibiotic prophylaxis and fluids for irrigation as applicable to this patient. Any safety precautions were addressed. The patient was taken to the operating room where general anesthesia was induced without difficulty. She was then positioned in the dorsal lithotomy position in [facility]. Positioning included placing her arms at her sides. After the patient was placed in what was felt to be a neurologically safe position, deep Trendelenburg position was tested prior to the operative procedure, to ensure that she would not move on the operating table. The patient was then prepped and draped in the normal sterile fashion for a combined abdominovaginal surgery. A Murcia catheter was placed in the bladder for continuous drainage. Uterus was sounded to 10 cm. V-Care manipulator was placed in the uterus for manipulation. Attention was then placed to the abdomen. The 8 mm port was placed at the umbilical site under direct laparscopic visualization and there was no evidence of injury from the trocar placement. The abdomen was then insufflated to 15mmHg for the remainder of the case. Visualization of the intraabdominal cavity showed normal pelvic anatomy without evidence of adhesions. The port sites for the remainder of the case were then measured out and placed under direct visualization. On the left side, one 8 mm robotic assist port and one 10 mm assist port were placed. On the right side, one 8 mm robotic port was placed. The [employer] robot was then brought to the operative field in a lateral docking style to the left of the patient and the robot was docked to the ports. All robotic instruments were brought into the pelvis under direct visualization with monopolar scissors in arm #3 and vessel sealer in arm #1. Bilateral ureters were visualized prior to starting the surgery. The right fallopian tube was grapsed by its fimbriated end, cauterized, and cut to the level of the right uterine cornua. The right uteroovarian ligement was cauterized and cut. The right round ligament was cauterized and cut. Broad ligament was opened and bladder flap created. This was repeated on the left side. The peritoneum of the bilateral broad ligaments was then taken down and monopolar cautery used to skeletonize the uterine arteries bilaterally. During the course of this dissection, the anterior leaf of the broad ligament was also taken down over the anterior aspect of the uterus and cervix to create a bladder flap. The bladder was then dissected off the cervix and upper vagina with the monopolar scissors and gentle blunt dissection. The bilateral uterine arteries were then cauterized and divided at the level of the internal cervical os. The monopolar cautery was used to incise the vaginal cuff. The uterus, along with the cervix was removed vaginally. Cuff was closed in with 0-Stratifix sutures. Excellent hemostasis was noted at this time. A 70 degree cystoscopy was performed which confirmed no suture placement within the bladder, no trauma to the bladder. Good efflux was noted from both ureteric orifices. The robot was undocked from the trocars and brought out of the operative field. The remainder of the ports were removed, and the gas was allowed to escape. All skin incisions were infiltrated with lidocaine and closed with 4-0 Monocryl and dermabond. Hemostasis was noted to be excellent throughout, and final sponge, instrument, and needle count was noted to be correct. The patient was moved back to the preoperative holding area in stable condition having tolerated the procedure well.
[2023-09-17] MEDS: droPERidol 5 MG/2 ML VIAL IVP ONE (09:39)
[2023-09-17] MEDS: fentaNYL (PF) 50 MCG/ML 2 ML AMP IVP ONE (09:46)
[2023-09-17] MEDS: KETOROLAC 15 MG/ML 1 ML VIAL IVP PRN (13:10)
[2023-09-17] MEDS: ACETAMINOPHEN TAB 325 MG TAB PO PRN (16:05)
[2023-09-17] MEDS: FAMOTIDINE 20 MG TAB PO SCH (20:46)
[2023-09-18 08:11] LABS: Basophils % (A) 0 %; Eosinophils % (A) 0 %; HCT 34.8 % (34.0-46.0); HGB 10.9 gm/dL (11.4-16.0); Lymphocytes % (A) 27 %; MCHC 31.4 g/dL (31.0-37.0); Mean Platelet Volume 7.8; Monocytes # (A) 0.5 k/uL (0-1.0); Monocytes % (A) 5 %; Neutrophils # (A) 7.5 k/uL (1.3-7.7); Neutrophils % (A) 67 %; Platelet Count 281 k/uL (150-450); WBC 11.1 k/uL (3.8-10.6)
--- NOTE | 2023-09-18 08:33 | P.DS ---
Providers Date of admission: 09/18/2023 Expected date of discharge: 09/18/23 Attending physician: Evelyn Maier MD Primary care physician: Reji Munozhven [facility] Course: This is a 33 year old who is POD#1 s/p RATLH, BS, and Cystoscopy for AUB and dysmenorrhea. The patient is doing well this morning and had no acute events overnight. She has no complaints this morning. She reports minimal vaginal spotting, passing flatus, voiding without difficulty, ambulating, and eating/drinking without nausea or vomiting. She denies chest pain, shortness of breathing, fevers, or chills overnight. She denies pain or swelling in the legs. Postoperative restrictions are reviewed with the patient including pelvic rest for 6 weeks, no lifting heavier than 15 pounds for 6 weeks. The patient is encouraged to call the office if she experiences any heavy bleeding, foul- smelling discharge, or any if she has any other concerns. She will follow up in the office with in 2 weeks for postoperative exam. She will be prescribed Motrin and Tylenol for pain. She declines Oxycodone. All questions are answered. Patient Condition at Discharge: Good Plan - Discharge Summary Discharge Rx Participant: No New Discharge Prescriptions: New Ibuprofen [Motrin] 600 mg PO Q6HR PRN #30 tab PRN Reason: Mild Pain (Scale 1 To 3) Acetaminophen Tab [Tylenol] 650 mg PO Q6H PRN #30 tab PRN Reason: Mild Pain (Scale 1 To 3) No Action guaiFENesin [Mucinex] 600 mg PO Q12H PRN PRN Reason: sinus drainage Discharge Medication List guaiFENesin [Mucinex] 600 mg PO Q12H PRN 09/14/23 [History] Acetaminophen Tab [Tylenol] 650 mg PO Q6H PRN #30 tab 09/18/23 [Rx] Ibuprofen [Motrin] 600 mg PO Q6HR PRN #30 tab 09/18/23 [Rx] Follow up Appointment(s)/Referral(s): Eevlyn Maier MD [STAFF PHYSICIAN] - 2 Weeks Activity/Diet/Wound Care/Special Instructions: Postoperative Instructions 1. No heavy lifting or straining (exercising) until after 6 week checkup. 2. Do not resume sexual relations for 6 weeks or longer if uncomfortable. 3. Keep abdominal incision clean and dry: You may wear a dressing if more comfortable. 4. Keep any areas repaired with stitches clean and dry. 5. Call the office, , within the next week to make appointment for your 2 week checkup 6. Report any of the following occurrences to the doctor promptly: a. Heavy, excessive bleeding b. Chills, fever c. Burning or frequency of urination d. Pain or redness around the incisions. Discharge Disposition: HOME SELF-CARE
[2023-09-18] MEDS ORDERED: ACETAMINOPHEN TAB 325 MG TAB PO PRN (09:01)
[2023-09-18 09:47] VITALS: BP 94/63; PULSE 70; RESP 16; TEMP 97.8
== END 2023-09-18 09:30 | disposition home or self-care (01) ==
LOC: OR 06:00 → 4FBP 09:01 → OR 09-18 09:30
PROVIDERS: ATTEND Obstetrics & Gynecology
DX: N84.0 Polyp of corpus uteri (principal); N93.8 Other specified abnormal uterine and vaginal bleeding; N94.6 Dysmenorrhea, unspecified; F17.200 Nicotine dependence, unspecified, uncomplicated; F41.9 Anxiety disorder, unspecified; F10.90 Alcohol use, unspecified, uncomplicated; Z80.41 Family history of malignant neoplasm of ovary; Z79.899 Other long term (current) drug therapy; Z98.890 Other specified postprocedural states; Z90.49 Acquired absence of other specified parts of digestive tract
CPT/HCPCS: 58571; S2900; 81025; 85025; 88307

== ENCOUNTER → 2024-02-27 | Outpatient (CLI) | payer OTHER ==
--- NOTE | 2024-02-28 12:56 | US ---
EXAMINATION TYPE: US thyroid st tissue head/neck DATE OF EXAM: 02/27/2024 COMPARISON: NONE CLINICAL INDICATION: Female, 33 years old with history of E04.9 ENLARGED THYROID; Patient states doct or felt thyroid was enlarged GLAND SIZE: Right Lobe: 5.6 x 2.2 x 2.0 cm Overall Parenchyma: homogeneous Left Lobe: 5.4 x 2.1 x 1.9 cm Overall Parenchyma: homogeneous Isthmus Thickness: 0.5 cm NODULES RIGHT: # of nodules measured on right: 1 1. 0.8 X 0.7 x 0.7 cm, lower mid, Prior size: No prior TIRADS Score: 0 TIRADS Category 1: Benign Composition: Spongiform (0 points). Recommendation: No FNA LEFT: # of nodules measured on left: 0 ISTHMUS: # of nodules measured in the isthmus: 0 Bilateral neck scanned, no evidence of lymphadenopathy. IMPRESSION: No suspicious thyroid nodules. [facility], , 02/28/2024 12:53 PM
== END | disposition home or self-care (01) ==
LOC: RADUSWWP 15:37
PROVIDERS: ATTEND Family Medicine
DX: E04.9 Nontoxic goiter, unspecified (principal)
CPT/HCPCS: 76536

== ENCOUNTER 2024-03-04 19:31 | Emergency (ER) | payer OTHER ==
--- NOTE | 2024-03-04 19:55 | ED ---
Chest Pain HPI - General Source: patient, RN notes reviewed <Pina Florence - Last Filed: 03/04/24 19:54> <Ligia Zacarias - Last Filed: 03/04/24 23:13> - General Stated Complaint: Chest Pain Time Seen by Provider: 03/04/24 19:45 - History of Present Illness Initial Comments: Quick [id number] female with a history of SVT and cardiac ablation presents emergency department chief complaint of chest pain and radiation to her left ribs that has been ongoing over the past few days. (Pina Florence) Patient is a 33-year-old female the past medical history of SVT status post ablation presenting for left-sided chest pain. Patient states in the past when she has been put on steroids she gets chest pains. Last week she was given a steroid injection in her shoulder for a pinched nerve in her neck. She was discharged home with oral steroids. Patient completed steroids 3 days ago however at home today began experiencing left-sided sharp chest pain. Nonradia ting. Denies any difficulty breathing, cough, hemoptysis, fevers, chills, lightheadedness, dizziness, palpitations, lower extremity swelling, history PE/DVT. Patient has no history of cancers and is a non-smoker. No family history of CVA/OK in first-degree family members. Overlying skin changes. States that she did take as milligrams Tylenol earlier this evening but does not feel it helped her pain. Pain did resolve while waiting in the waiting room. (Ligia Zacarias) - Related Data Home Medications Medication Instructions Recorded Confirmed guaiFENesin [Mucinex] 600 mg PO Q12H PRN 09/14/23 09/17/23 Previous Rx's Medication Instructions Recorded Acetaminophen Tab [Tylenol] 650 mg PO Q6H PRN #30 tab 09/18/23 Ibuprofen [Motrin] 600 mg PO Q6HR PRN #30 tab 09/18/23 Allergies Allergy/AdvReac Type Severity Reaction Status Date / Time No Known Allergies Allergy Verified 03/04/24 19:56 Review of Systems ROS Other: All systems not noted in ROS Statement are negative. <Pina Florence - Last Filed: 03/04/24 19:54> ROS Other: All systems not noted in ROS Statement are negative. <Ligia Zacarias - Last Filed: 03/04/24 23:13> ROS Statement: Those systems with pertinent positive or pertinent negative responses have been documented in the HPI. EKG Findings - EKG Comments: EKG Findings:: Sinus rhythm, rate 89 bpm, VT interval 135 ms, QRS duration 77 ms, QT/QTc 349/396 ms, normal axis, no ST elevations or depressions, no Brugada pattern, no delta wave. Compared to EKG performed 02/22/23 <Ligia Zacarias - Last Filed: 03/04/24 23:13> Past Medical History Past Medical History: No Reported History Additional Past Medical History / Comment(s): Hx gallstones, palpitations. History of Any Multi-Drug Resistant Organisms: None Reported Past Surgical History: Cardiac Ablation, Cholecystectomy Additional Past Surgical History / Comment(s): Left foot surgery, 2 laproscopic surgeries on ovaries, D&C, Past Anesthesia/Blood Transfusion Reactions: No Reported Reaction Smoking Status: Current every day smoker Additional Past Alcohol Use History / Comment(s): Has been smoking <1/2 PPD for 8 yrs. - Past Family History Mother Family Medical History: Cancer Additional Family Medical History / Comment(s): ovarian <Pina Florence - Last Filed: 03/04/24 19:54> General Exam <Guilherme Florenceoe - Last Filed: 03/04/24 19:54> <Ligia Zacarias - Last Filed: 03/04/24 23:13> - General Exam Comments Initial Comments: Visual Physical Exam Vital signs reviewed General: Well-appearing, nontoxic, no acute distress. Head: Normocephalic, atraumatic Eyes: PERRLA, EOMI ENT: Airway patent Chest: Nonlabored breathing Skin: No visual rash, normal skin tone Neuro: Alert and oriented 3 Musculoskeletal: No gross abnormalities (Stieler,Pina) PE: CONSTITUTIONAL: No apparent distress, well appearing SKIN: Warm, dry, no jaundice, hives or petechiae EYES: Pupils are equally round, extraocular movements intact without nystagmus, clear conjunctiva, non-icteric sclera HENT: Normocephalic, atraumatic, moist mucus membranes, oropharynx clear without exudates NECK: , Full range of motion, normal appearance PULMONARY: Clear to auscultation without wheezes, rhonchi, or rales, normal excursion, no accessory muscle use and no stridor CARDIOVASCULAR: Regular rate, rhythm, normal S1 and S2. No appreciated murmurs, rubs or gallops. Strong radial pulses with intact distal perfusion. No lower extremity edema GASTROINTESTINAL: Soft, non-tender, non-distended, no palpable masses, no rebound or guarding. No hepatosplenomegaly GENITOURINARY: MUSCULOSKELETAL: Extremities have no gross deformity, no edema, redness, or swelling. No calf swelling ot TTP. NEUROLOGIC:_a/o x 3, GCS 15, normal mentation and speech. Moves all extremities x 4 without motor or sensory deficit PSYCHIATRIC:_normal mood and affect, thought process is clear and linear (Ligia Zacarias) Course Vital Signs 03/04/24 03/04/24 19:56 22:49 Temperature 98.0 F 98.2 F Pulse Rate 100 86 Respiratory 16 16 Rate Blood Pressure 115/75 110/76 O2 Sat by Pulse 99 95 Oximetry Chest Pain MDM <Pina Florence - Last Filed: 03/04/24 19:54> <Ligia Zacarias - Last Filed: 03/04/24 23:13> - MDM I completed the quick note portion of this chart signed Pina Florence PA-C (Pina Florence) Was pt. sent in by a medical professional or institution (CORDELL Brenner, SCHOOL BUS MONITOR, urgent care, hospital, or custodial...) When possible be specific @ -No Did you speak to anyone other than the patient for history (EMS, parent, family, police, friend...)? What history was obtained from this source @ -No Did you review nursing and triage notes (agree or disagree)? Why? @ -I reviewed and agree with nursing and triage notes with exception of the fact that patient endorses trouble with breathing, denies any difficulty in breathing to me Were old charts reviewed (outside hosp., previous admission, EMS record, old EKG, old radiological studies, urgent care reports/EKG's, custodial records)? Report findings @ -EKG performed on 02/23/2023, no significant changes when comparing today's to prior Differential Diagnosis (chest pain, altered mental status, abdominal pain women, abdominal pain men, vaginal bleeding, weakness, fever, dyspnea, syncope, headache, dizziness, GI bleed, back pain, seizure, CVA, palpatations, mental health, musculoskeletal)? @ -Differential Chest Pain: Diagnosis remains broad out of considerations include ACS, pericarditis, pleuritis, costochondritis, pneumothorax, musculoskeletal, this is not all- inclusive list EKG interpreted by me (3pts min.). @ -As above X-rays interpreted by me (1pt min.). @ -No cardiomegaly, no pleural effusions or consolidations, no pneumothorax CT interpreted by me (1pt min.). @ -None done U/S interpreted by me (1pt. min.). @ -None done What testing was considered but not performed or refused? (CT, X-rays, U/S, labs)? Why? @ -Considered repeat troponin however patient declined What meds were considered but not given or refused? Why? @ -None Did you discuss the management of the patient with other professionals (professionals i.e. , PA, SCHOOL BUS MONITOR, lab, RT, psych nurse, social worker school, [employer] thread winder, teacher, chief wellness officer, case loader operator)? Give summary @ -Offered Toradol however patient platelet inclined in favor of taking pain medications at home Was smoking cessation discussed for >3mins.? @ -No Was critical care preformed (if so, how long)? @ -No Were there social determinants of health that impacted care today? How? (Homelessness, low income, unemployed, alcoholism, drug addiction, transportation, low edu. Level, literacy, decrease access to med. care, fdc, rehab)? @ -No Was there de-escalation of care discussed even if they declined (Discuss DNR or withdrawal of care, Hospice)? @ -No What co-morbidities impacted this encounter? (DM, HTN, Smoking, COPD, CAD, Cancer, CVA, ARF, Chemo, Hep., AIDS, mental health diagnosis, sleep apnea, morbid obesity)? @ -None Was patient admitted / discharged? Hospital course, mention meds given and route, prescriptions, significant lab abnormalities, going to OR and other pertinent info. @ -Discharge. Patient is a pleasant 33-year-old female presenting today for sharp left-sided chest pain brought on by steroids. Has happened in the past. Resolved by the time of my assessment. Vitals on arrival show mild tachycardia on arrival, HR 100. No hypoxia or hypotension. No tachypnea. Well appearing in NAD on my assesmment. LCTAB. Normal S2, S2 no tachycardia on assessment. No LE edema. Labs and imaging reviewed. Grossly within normal limits. WBC slightly elevated 10.7, suspect 2/2 steroid use. Abnormal values not concerning for acute pathology related to presenting complaint. I did offer patient Toradol and discussed repeat troponin however patient declined stating that she needed to get home and take care of her children. We discussed return precautions and plan to take NSAIDS as needed at home for pain. Patient agreeable with plan of care. In my medical judgment there is currently no evidence of an immediate life- threatening or surgical condition. Discharge is therefore indicated at this time. Discharge treatment instructions, follow up instructions, and appropriate emergency department return precautions were discussed with the patient and/or medical decision maker. Patient and/or medical decision maker expressed understanding of and agreed with the treatment plan, follow up instructions, and emergency department return precaution. All patient's and/or medical decision maker's questions were answered. Undiagnosed new problem with uncertain prognosis? @ -No Drug Therapy requiring intensive monitoring for toxicity (Heparin, Nitro, Insulin, Cardizem)? @ -No Were any procedures done? @ -No Diagnosis/symptom? @ -Chest pain Acute, or Chronic, or Acute on Chronic? @Acute Uncomplicated (without systemic symptoms) or Complicated (systemic symptoms)? @ -Uncomplicated Side effects of treatment? @ -No Exacerbation, Progression, or Severe Exacerbation? @ -No Poses a threat to life or bodily function? How? (Chest pain, [place], OK, pneumonia, PE, COPD, DKA, ARF, appy, cholecystitis, CVA, Diverticulitis, Homicidal, Suicidal, threat to staff... and all critical care pts) @ -Potentially, however at time of discharge no. (Ligia Zacarias) Disposition <Pina Florence - Last Filed: 03/04/24 19:54> Is patient prescribed a controlled substance at d/c from ED?: No <Ligia Zacarias - Last Filed: 03/04/24 23:13> Clinical Impression: Chest pain Disposition: HOME SELF-CARE Condition: Good Instructions (If sedation given, give patient instructions): Chest Pain (ED), Costochondritis (ED) Additional Instructions: Every disease is a spectrum and a small chance still exists that a serious condition could develop, for this reason, please monitor yourself closely for new, changing or worsening symptoms, symptoms that persist beyond 48 hours/not improve in 48 hours, change in quality and pain, difficulty in breathing, coughing up blood, cough productive of thick sputum, swelling in your legs, fever, inability to tolerate/keep down fluids or your medications, inability to follow up with outpatient providers as instructed and should you experience these symptoms or should you have any further concerns for your wellbeing please return to the ED or call 911 immediately. Your pain can be treated with ibuprofen and acetaminophen. You can take up to 400-600 mg of ibuprofen (Advil, Motrin) 3 times daily (every 8 hours) but can also use lower doses if this relieves your pain. Some people prefer naproxen (Aleve, Naprosyn) which can be taken in doses of 500 mg up to twice a day. Do not take both of these medicines together, and do not combine either with ketorolac (Toradol), meloxicam (Mobic), or indomethacin (Tivorbex). Some people can develop stomach discomfort with higher doses of either ibuprofen or naproxen, if this develops decrease your dose or stop taking it. If you need to take this dose daily for more than a week, please schedule an appointment for re-evaluation with your PCP. Please take these medications with food. You can take up to 1000 mg of acetaminophen (Tylenol) every 6 hours. Be careful as this is included in some medicines like Nyquil, [place], Percocet, Vicodin, STANBACK, Goody's Powders, and Excedrin. You can also use lidocaine patches for topical pain. You can purchase 4% patches over the counter at most drug stores. These can be helpful for pain from your muscles or bones. PLEASE call your primary care physician as soon as possible to arrange / discuss plan for followup appointment. Appointment in the next 1-3 days is strongly encouraged if possible. PLEASE let us know here before you leave if there is anything further we can do to be of any assistance. Take care and feel Better! Referrals: Reji Milton MD [Primary Care Provider] - 1-2 days
[2024-03-04 19:59] VITALS: RESP 16
[2024-03-04 20:38] LABS: Basophils # (A) 0.1 k/uL (0-0.2); Basophils % (A) 1 %; Eosinophils # (A) 0.2 k/uL (0-0.7); Eosinophils % (A) 2 %; HCT 42.9 % (34.0-46.0); HGB 13.9 gm/dL (11.4-16.0); Hypochromasia Slight; Lymphocytes # (A) 3.4 k/uL (1.0-4.8); Lymphocytes % (A) 32 %; MCH 28.1 pg (25.0-35.0); MCHC 32.4 g/dL (31.0-37.0); MCV 86.9 fL (80.0-100.0); Mean Platelet Volume 7.2; Monocytes # (A) 0.5 k/uL (0-1.0); Monocytes % (A) 5 %; Neutrophils # (A) 6.2 k/uL (1.3-7.7); Neutrophils % (A) 58 %; Platelet Count 360 k/uL (150-450); RBC 4.94 m/uL (3.80-5.40); RDW 15.3 % (11.5-15.5); WBC 10.7 k/uL (3.8-10.6)
[2024-03-04 21:09] LABS: ALT 39 U/L (4-34); AST 20 U/L (14-36); African American GFR (CKD) >90 (>60 ml/min/1.73 sqM); Albumin 4.5 g/dL (3.5-5.0); Alkaline Phosphatase 67 U/L (38-126); Anion Gap 6 mmol/L; Blood Urea Nitrogen 7 mg/dL (7-17); Calcium 9.9 mg/dL (8.4-10.2); Carbon Dioxide 29 mmol/L (22-30); Chloride 105 mmol/L (98-107); Glucose 100 mg/dL (74-99); Magnesium 2.2 mg/dL (1.6-2.3); Non-African American GFR(CKD) >90 (>60 ml/min/1.73 sqM); Potassium 3.7 mmol/L (3.5-5.1); Sodium 140 mmol/L (137-145); Total Bilirubin 0.5 mg/dL (0.2-1.3); Total Protein 7.4 g/dL (6.3-8.2)
--- NOTE | 2024-03-04 21:15 | XR ---
EXAMINATION TYPE: XR chest 2V DATE OF EXAM: 03/04/2024 COMPARISON: 02/24/2023 INDICATION: Anterior chest wall pain TECHNIQUE: Frontal and lateral views of the chest are obtained. FINDINGS: The heart size is normal. The pulmonary vasculature is normal. The lungs are clear. IMPRESSION: 1. No acute pulmonary process. [facility], , 03/04/2024 9:12 PM
[2024-03-04 22:50] VITALS: BP 110/76; PULSE 86; TEMP 98.2
== END 2024-03-04 22:49 | disposition home or self-care (01) ==
LOC: EC 19:31
DX: R07.89 Other chest pain (principal); F17.200 Nicotine dependence, unspecified, uncomplicated
CPT/HCPCS: 36415; 71046; 80053; 83735; 84484; 85025; 93005; 99285